=== PATIENT | female | born 1990 | race Two or more races ===

== ENCOUNTER 2017-09-24 09:40 | Emergency (ER) | payer MEDICAID ==
[~2017-09-24] VITALS: Ht 157.5 cm; Wt 63.5 kg
[2017-09-24 09:54] VITALS: BP 152/99
[2017-09-24] MEDS ORDERED: PREDNISONE20 MG ORAL (10:07)
[2017-09-24] MEDS ORDERED: CLINDAMYCIN HC300 MG ORAL (10:07)
[2017-09-24] MEDS ORDERED: DIPHENHYDRAMINE25 M1 ORAL (10:07)
[2017-09-24 10:16] VITALS: BP 152/99
--- NOTE | 2017-09-24 10:46 | Emergency Room Report ---
History of Present Illness General Chief Complaint: Skin Rash/Abscess Source: Patient Present Illness HPI 27-year-old female presents to ED for evaluation. Patient notes rash to her upper arms, chest, back x3 days. It is very itchy. Denies any pain. Denies any fevers or chills. Denies any food allergies. Notes allergies to penicillin and amoxicillin but denies taking these medications. Denies throat tighness, tongue swelling, or shortness of breath. Denies sick contacts or recent travel. No other aggravating or relieving factors. Denies any other associated symptoms Allergies: Coded Allergies: No Known Allergies (Unverified , 09/24/17) Patient History Past Medical History: DM, HTN Past Surgical History: none Pertinent Family History: none Social History: Denies: smoking, alcohol use, drug use Now: No Immunizations: UTD Reviewed Nursing Documentation: PMH: Agreed, PSxH: Agreed Nursing Documentation-PMH Past Medical History: No History, Except For Hx Hypertension: Yes Hx Diabetes: Yes Review of Systems All Other Systems: negative except mentioned in HPI Physical Exam Vital Signs Date Time Temp Pulse Resp B/P (MAP) Pulse Ox O2 Delivery O2 Flow Rate FiO2 09/24/17 09:49 98.2 86 18 152/99 98 Room Air 98.2 Sp02 EP Interpretation: reviewed, normal General Appearance: no apparent distress, alert, GCS 15, non-toxic Head: normocephalic Eyes: bilateral eye normal inspection, bilateral eye PERRL ENT: hearing grossly normal, normal pharynx, no angioedema, normal voice Neck: full range of motion, supple/symm/no masses Respiratory: chest non-tender, lungs clear, normal breath sounds, speaking full sentences Cardiovascular #1: normal inspection Gastrointestinal: normal inspection Rectal: deferred Genitourinary: no CVA tenderness Musculoskeletal: normal inspection Neurologic: alert, oriented x3, responsive, motor strength/tone normal, sensory intact, speech normal Psychiatric: judgement/insight normal Skin: rash - white papular diffuse rash noted to chest, arms, face. nonerythematous base Lymphatic: normal inspection Medical Decision Making Diagnostic Impression: Primary Impression: Rash and other nonspecific skin eruption ER Course Hospital Course 27-year-old female presents to ED with rash to arms, chest and back Differential diagnoses include: Cellulitis, dermatitis, insect bite, abscess Clinical course Patient placed on stretcher. After initial history, physical exam reveals a young female in no acute distress. On exam there is a diffuse white papular rash noted to the arms, chest, face, back. Nonerythematous base Patient states that she recently switched reviewed detergent. Also states that she started a new job with a new uniform which he did not wash prior to her first use Recommended that she switch back to original detergent. Recommend washing the chart prior to next use. We will prescribe antibiotics, steroids, Benadryl. If symptoms do not improve recommend followup with dermatology as outpatient Diagnosis - rash stable and discharged to home with prescription for prednisnoe, benedryl, clindamycin. Instructed to followup with PMD. Instructed return to ED if symptoms recur or worsen Last Vital Signs Date Time Temp Pulse Resp B/P (MAP) Pulse Ox O2 Delivery O2 Flow Rate FiO2 09/24/17 10:16 98.2 18 152/99 98 Room Air 98.2 09/24/17 09:49 86 Status: improved Disposition: HOME, SELF-CARE Condition: Stable Scripts Prednisone* (PREDNISONE*) 20 Mg Tablet 40 MG ORAL DAILY, #10 TAB Prov: NEFTALY GUARDADO M.D. 09/24/17 Diphenhydramine Hcl* (DIPHENHYDRAMINE HCL*) 25 Mg Capsule 25 MG ORAL Q6H Y for Itching, #30 CAP 0 Refills Prov: NEFTALY GUARDADO M.D. 09/24/17 Clindamycin Hcl (CLINDAMYCIN HCL) 300 Mg Capsule 300 MG ORAL THREE TIMES A DAY, #21 CAP Prov: NEFTALY GUARDADO M.D. 09/24/17 Referrals: NON PHYSICIAN (PCP) Patient Instructions: NEFTALY Cagle M.D. Sep 24, 2017 10:46
== END 2017-09-24 10:18 | disposition home or self-care (01) ==
LOC: EMR 10:06
DX: R21 Rash and other nonspecific skin eruption (principal); I10 Essential (primary) hypertension; E11.9 Type 2 diabetes mellitus without complications
CPT/HCPCS: 99284

== ENCOUNTER 2018-01-05 23:18 | Emergency (ER) | payer MEDICAID ==
[~2018-01-05] VITALS: Ht 165.1 cm; Wt 87.1 kg
[~2018-01-05 23:18] MED LIST: CLINDAMYCIN HC300 MG ORAL; DIPHENHYDRAMINE25 M1 ORAL; PREDNISONE20 MG ORAL
[2018-01-05] MEDS ORDERED: LORATADINE10 M2 PO (23:32)
[2018-01-05] MEDS ORDERED: LISINOPRIL10 MG ORAL (23:32)
[2018-01-05] MEDS ORDERED: GLIPIZIDE10 MG PO (23:32)
[2018-01-05] MEDS ORDERED: METFORMIN HCL1000 M1 ORAL (23:32)
[2018-01-05 23:40] VITALS: BP 120/75
[2018-01-05] MEDS ORDERED: Morphine Sulfate 4mg/ml Inj IVP ONE (23:45)
[2018-01-05] MEDS ORDERED: Ketorolac 30mg Inj IV ONE (23:45)
--- NOTE | 2018-01-05 23:47 | Emergency Room Report ---
History of Present Illness General Chief Complaint: Abdominal Pain Source: Patient Present Illness HPI Is a 27-year-old female with history of diabetes. She presents with abdominal pain localized the right upper quadrant. Onset around 4 PM. Worse with eating. Pain radiating to the right inferior scapular area. Started vomiting here. No diarrhea. Pain is 10 out of 10. Similar symptom in the past but not as severe. Mom has history of gallbladder disease and require cholecystectomy. Allergies: Coded Allergies: AMOXICILLIN (Verified Allergy, Unknown, 01/05/18) PENICILLINS (Verified Allergy, Unknown, 01/05/18) Patient History Past Medical History: see triage record, old chart reviewed, DM Past Surgical History: appy Pertinent Family History: none Social History: Denies: smoking Last Menstrual Period: December Immunizations: other Reviewed Nursing Documentation: PMH: Agreed; PSxH: Agreed Nursing Documentation-PMH Hx Hypertension: Yes Hx Diabetes: Yes Review of Systems Eye: Denies: eye pain, blurred vision ENT: Denies: ear pain, nose congestion, throat swelling Respiratory: Denies: cough, shortness of breath Cardiovascular: Denies: chest pain, palpitations Gastrointestinal: Reports: abdominal pain, nausea, vomiting; Denies: diarrhea Musculoskeletal: Denies: back pain, joint pain Skin: Denies: rash Neurological: Denies: headache, numbness Endocrine: Denies: increased thirst, increased urine Hematologic/Lymphatic: Denies: easy bruising All Other Systems: negative except mentioned in HPI Physical Exam Vital Signs Date Time Temp Pulse Resp B/P (MAP) Pulse Ox O2 Delivery O2 Flow Rate FiO2 01/05/18 23:24 97.8 105 16 131/87 97 Room Air 97.9 vitals normal Sp02 EP Interpretation: reviewed, normal General Appearance: well appearing, no apparent distress, alert Head: normocephalic, atraumatic Eyes: bilateral eye PERRL, bilateral eye EOMI ENT: hearing grossly normal, normal pharynx Neck: full range of motion, supple, no meningismus Respiratory: chest non-tender, lungs clear, normal breath sounds Cardiovascular #1: regular rate, rhythm, no murmur Gastrointestinal: normal bowel sounds, no mass, no organomegaly, no bruit, non- distended, tenderness - Right upper quadrant Musculoskeletal: back normal, gait/station normal, normal range of motion Psychiatric: mood/affect normal Skin: warm/dry Medical Decision Making Diagnostic Impression: Primary Impression: Cholelithiasis Qualified Codes: K80.20 - Calculus of gallbladder without cholecystitis without obstruction Additional Impressions: Biliary colic Hyperglycemia due to type 2 diabetes mellitus Qualified Codes: E11.65 - Type 2 diabetes mellitus with hyperglycemia ER Course Patient presents with abdominal pain of right upper quadrant. Symptoms suggested of cholelithiasis and biliary colic. No evidence of pancreatitis. My bedside ultrasound showed multiple gallstones and sludge. Negative Garcia sign. Common bowel duct unremarkable. Lab Results Impression labs with elevated glucose Last Vital Signs Date Time Temp Pulse Resp B/P (MAP) Pulse Ox O2 Delivery O2 Flow Rate FiO2 01/05/18 23:24 97.8 105 16 131/87 97 Room Air 97.9 Status: improved Disposition: HOME, SELF-CARE Condition: Stable Scripts Hydrocodone/Acetaminophen 5-325* (HYDROCODONE/ACETAMINOPHEN 5-325*) 1 Each Tablet 1 TAB ORAL Q6H PRN for For Pain, #20 TAB 0 Refills Prov: JUANITO LIMON M.D. 01/06/18 Additional Instructions: Follow-up with your DrGilles in 2 to 3 days. You may benefit from referral to see a surgeon. Return if symptom worsen. JUANITO LIMON M.D. January 05, 2018 23:47
[2018-01-05 23:59] LABS: BASOPHILS % (AUTO) 0.8 % (0.0-2.0); EOSINOPHILS % (AUTO) 1.9 % (0.0-3.0); HEMATOCRIT 43.6 % (37.0-47.0); HEMOGLOBIN 15.6 G/DL (12.0-16.0); LYMPHOCYTES % (AUTO) 41.6 % (20.0-45.0); MEAN CORPUSCULAR VOLUME 82 FL (80-99); MONOCYTES % (AUTO) 5.1 % (1.0-10.0); NEUTROPHILS % (AUTO) 50.7 % (45.0-75.0); PLATELET COUNT 300 K/UL (150-450); RED BLOOD COUNT 5.33 M/UL (4.20-5.40); RED CELL DISTRIBUTION WIDTH 11.3 % (11.6-14.8); WHITE BLOOD COUNT 9.2 K/UL (4.8-10.8)
[2018-01-06 00:09] LABS: APPEARANCE,URINE CLEAR; BILIRUBIN, URINE NEGATIVE (NEGATIVE); COLOR,URINE PALE YELLOW; GLUCOSE, URINE (UA) 3+ (NEGATIVE); KETONES,URINE NEGATIVE (NEGATIVE); LEUKOCYTE ESTERASE ,URINE NEGATIVE (NEGATIVE); NITRITE,URINE NEGATIVE (NEGATIVE); PH,URINE 5 (4.5-8.0); PROTEIN,URINE NEGATIVE (NEGATIVE); UROBILINOGEN,URINE NORMAL MG/DL (0.0-1.0)
[2018-01-06 00:17] LABS: ANION GAP 11 mmol/L (5-15); BLOOD UREA NITROGEN 12 mg/dL (7-18); CALCIUM 9.2 MG/DL (8.5-10.1); CARBON DIOXIDE 26 MMOL/L (21-32); CHLORIDE 99 MMOL/L (98-107); CREATININE 0.7 MG/DL (0.55-1.30); POTASSIUM 3.6 MMOL/L (3.5-5.1); SODIUM 136 MMOL/L (136-145)
[2018-01-06 00:20] LABS: ALANINE AMINOTRANSFERASE 50 U/L (12-78); ALBUMIN 3.4 G/DL (3.4-5.0); ALBUMIN/GLOBULIN RATIO 0.8 (1.0-2.7); ALKALINE PHOSPHATASE 106 U/L (46-116); ASPARTATE AMINO TRANSFERASE 25 U/L (15-37); BILIRUBIN,TOTAL 0.5 MG/DL (0.2-1.0)
[2018-01-06] MEDS ORDERED: Morphine Sulfate 4mg/ml Inj IVP ONE (01:15)
[2018-01-06] MEDS ORDERED: HYDROCODON-ACE1 EA15 ORAL (01:16)
[2018-01-06 01:25] VITALS: BP 122/74
[2018-01-06 01:30] VITALS: BP 122/74
== END 2018-01-06 01:30 | disposition home or self-care (01) ==
LOC: EMR 23:35
DX: K80.20 Calculus of gallbladder without cholecystitis without obstruction (principal); E11.65 Type 2 diabetes mellitus with hyperglycemia; I10 Essential (primary) hypertension; Z88.0 Allergy status to penicillin
CPT/HCPCS: 36415; 80053; 81003; 81025; 83690; 85025; 96361; 96374; 96375; 96376; 99284; J1885; J2270; J2405; 96360

== ENCOUNTER 2018-03-16 16:16 | Emergency (ER) | payer MEDICAID ==
[~2018-03-16] VITALS: Ht 165.1 cm; Wt 86.2 kg
[~2018-03-16 16:16] MED LIST changes: +GLIPIZIDE10 MG PO; +HYDROCODON-ACE1 EA15 ORAL; +LISINOPRIL10 MG ORAL; +LORATADINE10 M2 PO; +METFORMIN HCL1000 M1 ORAL
[2018-03-16] MEDS ORDERED: CHLORTHALIDONE25 MG ORAL (16:23)
[2018-03-16 16:42] VITALS: BP 130/87
[2018-03-16] MEDS ORDERED: Ketorolac 30mg Inj IV ONE (16:45)
[2018-03-16 17:25] LABS: EOSINOPHILS % (AUTO) 1.8 % (0.0-3.0); HEMATOCRIT 45.4 % (37.0-47.0); HEMOGLOBIN 15.7 G/DL (12.0-16.0); LYMPHOCYTES % (AUTO) 35.9 % (20.0-45.0); MEAN CORPUSCULAR VOLUME 84 FL (80-99); MONOCYTES % (AUTO) 4.3 % (1.0-10.0); PLATELET COUNT 341 K/UL (150-450); RED BLOOD COUNT 5.43 M/UL (4.20-5.40); RED CELL DISTRIBUTION WIDTH 11.1 % (11.6-14.8); WHITE BLOOD COUNT 9.2 K/UL (4.8-10.8)
[2018-03-16 17:31] LABS: ANION GAP 7 mmol/L (5-15); BLOOD UREA NITROGEN 9 mg/dL (7-18); CALCIUM 9.7 MG/DL (8.5-10.1); CARBON DIOXIDE 28 MMOL/L (21-32); CHLORIDE 97 MMOL/L (98-107); CREATININE 0.8 MG/DL (0.55-1.30); POTASSIUM 3.4 MMOL/L (3.5-5.1); SODIUM 132 MMOL/L (136-145)
[2018-03-16 17:36] LABS: ALANINE AMINOTRANSFERASE 73 U/L (12-78); ALBUMIN/GLOBULIN RATIO 0.9 (1.0-2.7); ALKALINE PHOSPHATASE 105 U/L (46-116); ASPARTATE AMINO TRANSFERASE 50 U/L (15-37); BILIRUBIN,TOTAL 0.5 MG/DL (0.2-1.0)
--- NOTE | 2018-03-16 18:04 | Emergency Room Report ---
History of Present Illness General Chief Complaint: Chest Pain Source: Patient, Medical Record Present Illness HPI 28-year-old female patient presents ER complaining of intermittent chest pain for the past week. Reports pain comes and goes.. Denies radiation of pain down the arms. Denies fever, shortness of breath, cough, abdominal pain. Denies dysuria, hematuria. Denies vomiting. Denies other acute symptoms.reports stressors at home. Reports history of hypertension and diabetes. Reports taking medications. Reports was seen by primary care provider a week ago, had abnormal EKG and was referred to cardiology. States awaiting referral to cardiology. Denies hx of OR or stroke. Allergies: Coded Allergies: AMOXICILLIN (Verified Allergy, Unknown, 01/05/18) PENICILLINS (Verified Allergy, Unknown, 01/05/18) Patient History Past Medical History: see triage record Last Menstrual Period: 02/20/18 Reviewed Nursing Documentation: PMH: Agreed; PSxH: Agreed Nursing Documentation-PMH Past Medical History: No History, Except For Hx Hypertension: Yes Hx Diabetes: Yes Review of Systems All Other Systems: negative except mentioned in HPI Physical Exam Vital Signs Date Time Temp Pulse Resp B/P (MAP) Pulse Ox O2 Delivery O2 Flow Rate FiO2 03/16/18 16:18 98.3 99 18 130/87 96 Room Air 98.2 Sp02 EP Interpretation: reviewed, normal General Appearance: well appearing, no apparent distress, alert, GCS 15, non- toxic Head: normocephalic, atraumatic Eyes: bilateral eye normal inspection, bilateral eye PERRL ENT: hearing grossly normal, normal pharynx, no angioedema, normal voice, TMs + canals normal, uvula midline, moist mucus membranes Neck: full range of motion Respiratory: lungs clear, normal breath sounds, no rhonchi, no respiratory distress, no accessory muscle use, no wheezing, speaking full sentences Cardiovascular #1: regular rate, rhythm, no edema Gastrointestinal: non tender, soft, no mass, non-distended, no guarding, no rebound Genitourinary: no CVA tenderness Musculoskeletal: back normal, digits/nails normal, gait/station normal, normal range of motion, non-tender Neurologic: alert, oriented x3, responsive, motor strength/tone normal, sensory intact Psychiatric: mood/affect normal Skin: no rash Lymphatic: no adenopathy Medical Decision Making PA Attestation Dr. Snyder is my supervising Physician whom patient management has been discussed with. Diagnostic Impression: Primary Impression: Atypical chest pain Additional Impression: Diabetes mellitus ER Course Pt. presents to the ED c/o chest pain. Ddx considered but are not limited to GERD, acid reflux, OR, arrhythmia, DVT, pneumothorax, anxiety. No calf swelling, negative Tab's sign, low suspicion for DVT per Well's criteria. Low suspicion for cardiac cause of pain. Will order labs to rule out. Vital signs: are WNL, pt. is afebrile Blood pressure mildly elevated at this time, will continue to monitor. Does not require acute intervention at ER at this time. Follow with primary care provider discuss further treatment and referral. Advised on low-sodium diet, advised on diet and exercise. Ordered X-ray, labs, troponin, EKG and pain medication. ER COURSE Labs shows no elevation in WBC or LFTs, elevated blood glucose, states she took her medication, will provide fluids to patient. advised patient to discuss diabetes medications with primary care provider. Troponin negative CXR Negative for acute disease EKG unremarkable, no ST elevation or arrhythmias noted negative chest x-ray, no ST elevations an EKG, troponin negative, cardiac pathology unlikely at this time, however needs follow-up outpatient for further testing as needed with assembly detailer. discussed with the patient. Patient resting comfortably in bed, nontoxic appearing, texting on her phone, laughing and smiling. Patient OK for outpatient followup and treatment. Followup with primary care provider, discuss referral to cardiology. Advised on diabetes medication and diet. DISCHARGE: -Rx provided for Tylenol for pain symptoms. At this time pt. is stable for d/c to home. Patient is resting comfortably, in no acute distress, nontoxic appearing, talking without difficulty. Will provide printed patient care instructions, and any necessary prescriptions. Patient instructed to follow with primary care provider in 1-3 days. Followup with primary care provider for further pain medication rx. Care plan and follow up instructions have been discussed with the patient prior to discharge. Take medications as directed. Patient questions asked and answered. Patient reports understanding and agreement to treatment plan. ER precautions given, patient instructed to return to ER immediately for any new or worsening of symptoms. - Please note that this Emergency Department Report was dictated using [employer] lid[employer] technology software, occasionally this can lead to erroneous entry secondary to interpretation by the dictation equipment. Labs Test 8/9/18 17:01 White Blood Count 9.2 K/UL (4.8-10.8) Red Blood Count 5.43 M/UL (4.20-5.40) Hemoglobin 15.7 G/DL (12.0-16.0) Hematocrit 45.4 % (37.0-47.0) Mean Corpuscular Volume 84 FL (80-99) Mean Corpuscular Hemoglobin 28.9 PG (27.0-31.0) Mean Corpuscular Hemoglobin Concent 34.5 G/DL (32.0-36.0) Red Cell Distribution Width 11.1 % (11.6-14.8) Platelet Count 341 K/UL (150-450) Mean Platelet Volume 6.3 FL (6.5-10.1) Neutrophils (%) (Auto) 57.0 % (45.0-75.0) Lymphocytes (%) (Auto) 35.9 % (20.0-45.0) Monocytes (%) (Auto) 4.3 % (1.0-10.0) Eosinophils (%) (Auto) 1.8 % (0.0-3.0) Basophils (%) (Auto) 1.0 % (0.0-2.0) Sodium Level 132 MMOL/L (136-145) Potassium Level 3.4 MMOL/L (3.5-5.1) Chloride Level 97 MMOL/L (98-107) Carbon Dioxide Level 28 MMOL/L (21-32) Anion Gap 7 mmol/L (5-15) Blood Urea Nitrogen 9 mg/dL (7-18) Creatinine 0.8 MG/DL (0.55-1.30) Estimat Glomerular Filtration Rate > 60 mL/min (>60) Glucose Level 311 MG/DL (74-106) Calcium Level 9.7 MG/DL (8.5-10.1) Total Bilirubin 0.5 MG/DL (0.2-1.0) Aspartate Amino Transf (AST/SGOT) 50 U/L (15-37) Alanine Aminotransferase (ALT/SGPT) 73 U/L (12-78) Alkaline Phosphatase 105 U/L (46-116) Troponin I 0.000 ng/mL (0.000-0.056) Total Protein 8.5 G/DL (6.4-8.2) Albumin 4.0 G/DL (3.4-5.0) Globulin 4.5 g/dL Albumin/Globulin Ratio 0.9 (1.0-2.7) EKG Diagnostic Results Rate: normal Rhythm: NSR ST Segments: no acute changes ASA given to the pt in ED: No PA Scribe Text Naren Grimaldo PA-C Rhythm Strip Diag. Results EP Interpretation: yes Rate: 98 Rhythm: NSR, no PVC's, no ectopy PA Scribe Text Naren Grimaldo PA-C Chest X-Ray Diagnostic Results Chest X-Ray Diagnostic Results : Chest X-Ray Ordered: Yes # of Views/Limited/Complete: 1 View Indication: Chest Pain EP Interpretation: Yes PA Xray: Interpretation reviewed, by supervising MD, and agrees with findings. Interpretation: no consolidation, no effusion, no pneumothorax, no acute cardiopulmonary disease Impression: No acute disease TATIANA Scribe Viki Grimaldo PA-C Last Vital Signs Date Time Temp Pulse Resp B/P (MAP) Pulse Ox O2 Delivery O2 Flow Rate FiO2 03/16/18 17:03 98.2 03/16/18 16:42 89 18 130/87 96 Room Air Disposition: HOME, SELF-CARE Condition: Stable Scripts Acetaminophen* (TYLENOL EXTRA STRENGTH*) 500 Mg Tablet 500 MG ORAL Q8H PRN for Prn Headache/Temp > 101, #30 TAB 0 Refills Prov: Don Grimaldo 03/16/18 Referrals: NON PHYSICIAN (PCP) Patient Instructions: Diabetes Mellitus and Food, Nonspecific Chest Pain, Easy- to-Read Additional Instructions: Followup with primary care provider in 3 -5 days. Discuss diabetes medications. Follow-up with cardiology. Advised on diet, exercise and weight loss. Take medications as directed. Patient questions asked and answered. ER precautions given, patient instructed to return to ER immediately for any new or worsening of symptoms. Don Grimaldo Mar 16, 2018 18:04
[2018-03-16] MEDS ORDERED: TYLENOL EXTRA500 MG ORAL (18:35)
[2018-03-16 19:03] VITALS: BP 129/67
[2018-03-16 19:38] VITALS: BP 129/67
--- NOTE | 2018-03-17 09:43 | Diagnostic Imaging Report ---
Indication: Chest pain Technique: One view of the chest Comparison: none Findings: Lungs and pleural spaces are clear. Heart size is normal Impression: No acute process
--- NOTE | 2018-03-17 13:36 | Cardiology Report ---
APPROVED REPORT EKG Measurement Heart [id number] Normal sinus rhythm Normal ECG
== END 2018-03-16 19:38 | disposition home or self-care (01) ==
LOC: EMR 17:39
DX: R07.89 Other chest pain (principal); E11.9 Type 2 diabetes mellitus without complications; I10 Essential (primary) hypertension; Z88.0 Allergy status to penicillin; Z88.1 Allergy status to other antibiotic agents
CPT/HCPCS: 36415; 71045; 80053; 84484; 85025; 93005; 96361; 96374; 99284; J1885

== ENCOUNTER 2018-03-23 20:14 | Emergency (ER) | payer MEDICAID ==
[~2018-03-23] VITALS: Ht 165.1 cm; Wt 81.6 kg
[~2018-03-23 20:14] MED LIST changes: +CHLORTHALIDONE25 MG ORAL; +TYLENOL EXTRA500 MG ORAL
--- NOTE | 2018-03-23 20:58 | Emergency Room Report ---
History of Present Illness General Chief Complaint: Pain Source: Patient Present Illness HPI Patient is a 28-year-old female who presented after increased sore throat and a left-sided earache. The patient reported having onset of symptoms approximately 3 days prior to arrival. She reports having increased difficulty swallowing. She reports having generalized body aches as well as some painful swallowing. She denies any change in her voice. She denies any difficulty with eating. The patient prior history of hypertension and type 2 diabetes. Allergies: Coded Allergies: AMOXICILLIN (Verified Allergy, Unknown, 01/05/18) PENICILLINS (Verified Allergy, Unknown, 01/05/18) Patient History Past Medical History: see triage record Last Menstrual Period: 03/22/18 Now: No Reviewed Nursing Documentation: PMH: Agreed; PSxH: Agreed Nursing Documentation-PMH Hx Hypertension: Yes Hx Diabetes: Yes Review of Systems All Other Systems: negative except mentioned in HPI Physical Exam Vital Signs Date Time Temp Pulse Resp B/P (MAP) Pulse Ox O2 Delivery O2 Flow Rate FiO2 03/23/18 20:28 99.9 124 24 142/93 93 Room Air 99.9 General Appearance: well appearing, no apparent distress, alert, GCS 15 Head: normocephalic, atraumatic ENT: hearing grossly normal, normal voice, tonsillar swelling - no uvular deviation, pharyngeal erythema Neck: full range of motion, supple Respiratory: lungs clear, normal breath sounds, no respiratory distress, speaking full sentences Cardiovascular #1: normal inspection, normal peripheral pulses, regular rate, rhythm, no edema Gastrointestinal: normal inspection, non tender, soft Musculoskeletal: no calf tenderness Neurologic: normal inspection, alert, oriented x3, responsive, service desk lead III-XII nml as tested, normal gait Psychiatric: mood/affect normal Skin: no rash Medical Decision Making Diagnostic Impression: Primary Impression: Pharyngitis ER Course Presented for sore throat. Differential diagnosis included but was not limited to meningitis, exudative tonsillitis, retropharyngeal abscess, epiglottitis, strep pharyngitis. Because of complexity of patient's case laboratory testing and imaging studies were ordered. the patient was noted to have a mildly elevated WBC. Patient appears have evidence of exudative tonsillitis. There does not appear to be any abscess this time. The patient given ibuprofen for pain as well as viscous lidocaine. The test was ordered. The patient will be given antibiotics for presumed bacterial pharyngitis.The patient is advised to follow up with primary care doctor in 1-2 days. Patient is advised to return if any worsening condition or if any changes in status that are concerning. This report is dictated with [employer] vacation planner software which may occasionally lead to discrepancies related to use of this software. Labs Test 03/23/18 21:20 03/23/18 21:25 Urine Color Pale yellow Urine Appearance Clear Urine pH 7 (4.5-8.0) Urine Specific [place] 1.010 (1.005-1.035) Urine Protein 1+ (NEGATIVE) Urine Glucose (UA) 4+ (NEGATIVE) Urine Ketones Negative (NEGATIVE) Urine Occult Blood 5+ (NEGATIVE) Urine Nitrite Negative (NEGATIVE) Urine Bilirubin Negative (NEGATIVE) Urine Urobilinogen Normal MG/DL (0.0-1.0) Urine Leukocyte Esterase Negative (NEGATIVE) Urine RBC 40-60 /HPF (0 - 2) Urine WBC 0 /HPF (0 - 2) Urine Squamous Epithelial Cells Occasional /LPF Urine Bacteria Occasional /HPF (NONE) Urine HCG, Qualitative Negative (NEGATIVE) White Blood Count 13.0 K/UL (4.8-10.8) Red Blood Count 4.99 M/UL (4.20-5.40) Hemoglobin 14.8 G/DL (12.0-16.0) Hematocrit 42.2 % (37.0-47.0) Mean Corpuscular Volume 85 FL (80-99) Mean Corpuscular Hemoglobin 29.7 PG (27.0-31.0) Mean Corpuscular Hemoglobin Concent 35.1 G/DL (32.0-36.0) Red Cell Distribution Width 11.1 % (11.6-14.8) Platelet Count 319 K/UL (150-450) Mean Platelet Volume 6.3 FL (6.5-10.1) Neutrophils (%) (Auto) 72.4 % (45.0-75.0) Lymphocytes (%) (Auto) 21.1 % (20.0-45.0) Monocytes (%) (Auto) 4.7 % (1.0-10.0) Eosinophils (%) (Auto) 1.0 % (0.0-3.0) Basophils (%) (Auto) 0.8 % (0.0-2.0) Sodium Level 135 MMOL/L (136-145) Potassium Level 3.6 MMOL/L (3.5-5.1) Chloride Level 100 MMOL/L (98-107) Carbon Dioxide Level 29 MMOL/L (21-32) Anion Gap 7 mmol/L (5-15) Blood Urea Nitrogen 6 mg/dL (7-18) Creatinine 0.7 MG/DL (0.55-1.30) Estimat Glomerular Filtration Rate > 60 mL/min (>60) Glucose Level 269 MG/DL (74-106) Calcium Level 9.2 MG/DL (8.5-10.1) Total Bilirubin 0.5 MG/DL (0.2-1.0) Aspartate Amino Transf (AST/SGOT) 31 U/L (15-37) Alanine Aminotransferase (ALT/SGPT) 77 U/L (12-78) Alkaline Phosphatase 115 U/L (46-116) Total Protein 8.3 G/DL (6.4-8.2) Albumin 3.9 G/DL (3.4-5.0) Globulin 4.4 g/dL Albumin/Globulin Ratio 0.9 (1.0-2.7) Human Chorionic Gonadotropin, Qual Negative (NEGATIVE) Last Vital Signs Date Time Temp Pulse Resp B/P (MAP) Pulse Ox O2 Delivery O2 Flow Rate FiO2 03/23/18 20:28 99.9 124 24 142/93 93 Room Air 99.9 Status: improved Disposition: HOME, SELF-CARE Condition: Stable Scripts Ibuprofen* (MOTRIN*) 600 Mg Tablet 600 MG ORAL Q8H PRN for For Pain, #30 TAB 0 Refills Prov: Xiang Hussein MD 03/23/18 Azithromycin* (ZITHROMAX*) 250 Mg Tablet 250 MG ORAL DAILY, #4 TAB Prov: Xiang Hussein MD 03/23/18 Xiang Hussein MD Mar 23, 2018 20:58
[2018-03-23] MEDS ORDERED: IBUPROFEN600 MG ORAL (20:59)
[2018-03-23] MEDS ORDERED: ZITHROMAX250 MG ORAL (20:59)
[2018-03-23] MEDS ORDERED: Azithromycin 250mg tab ORAL ONE (21:00)
[2018-03-23] MEDS ORDERED: Lidocaine 2% Visc 15ml soln ORAL ONE (21:00)
[2018-03-23 21:25] VITALS: BP 137/78
[2018-03-23] MEDS ORDERED: Acetaminophen 500mg (ES) tab ORAL ONE (21:30)
[2018-03-23 21:50] LABS: BASOPHILS % (AUTO) 0.8 % (0.0-2.0); HEMATOCRIT 42.2 % (37.0-47.0); HEMOGLOBIN 14.8 G/DL (12.0-16.0); LYMPHOCYTES % (AUTO) 21.1 % (20.0-45.0); MEAN CORPUSCULAR VOLUME 85 FL (80-99); MONOCYTES % (AUTO) 4.7 % (1.0-10.0); NEUTROPHILS % (AUTO) 72.4 % (45.0-75.0); PLATELET COUNT 319 K/UL (150-450); RED BLOOD COUNT 4.99 M/UL (4.20-5.40); RED CELL DISTRIBUTION WIDTH 11.1 % (11.6-14.8)
[2018-03-23 21:52] LABS: ANION GAP 7 mmol/L (5-15); BLOOD UREA NITROGEN 6 mg/dL (7-18); CALCIUM 9.2 MG/DL (8.5-10.1); CARBON DIOXIDE 29 MMOL/L (21-32); CHLORIDE 100 MMOL/L (98-107); CREATININE 0.7 MG/DL (0.55-1.30); POTASSIUM 3.6 MMOL/L (3.5-5.1); SODIUM 135 MMOL/L (136-145)
[2018-03-23 21:55] LABS: APPEARANCE,URINE CLEAR; BILIRUBIN, URINE NEGATIVE (NEGATIVE); COLOR,URINE PALE YELLOW; GLUCOSE, URINE (UA) 4+ (NEGATIVE); KETONES,URINE NEGATIVE (NEGATIVE); LEUKOCYTE ESTERASE ,URINE NEGATIVE (NEGATIVE); NITRITE,URINE NEGATIVE (NEGATIVE); PH,URINE 7 (4.5-8.0); PROTEIN,URINE 1+ (NEGATIVE); UROBILINOGEN,URINE NORMAL MG/DL (0.0-1.0)
[2018-03-23 21:57] LABS: ALANINE AMINOTRANSFERASE 77 U/L (12-78); ALBUMIN 3.9 G/DL (3.4-5.0); ALBUMIN/GLOBULIN RATIO 0.9 (1.0-2.7); ALKALINE PHOSPHATASE 115 U/L (46-116); ASPARTATE AMINO TRANSFERASE 31 U/L (15-37); BILIRUBIN,TOTAL 0.5 MG/DL (0.2-1.0)
[2018-03-23] MEDS ORDERED: Azithromycin 500 MG in D5W 275 ML IVPB ONE (22:15)
[2018-03-23 23:36] VITALS: BP 150/87
[2018-03-24 00:25] VITALS: BP 139/84
== END 2018-03-24 00:25 | disposition home or self-care (01) ==
LOC: EMR 20:55
DX: J02.9 Acute pharyngitis, unspecified (principal); E11.9 Type 2 diabetes mellitus without complications; I10 Essential (primary) hypertension; Z88.0 Allergy status to penicillin; Z88.1 Allergy status to other antibiotic agents
CPT/HCPCS: 36415; 80053; 81003; 81025; 84703; 85025; 96361; 96365; 99284; J0456; Q0144

== ENCOUNTER 2018-07-16 11:05 | Emergency (ER) | payer MEDICAID ==
[~2018-07-16] VITALS: Ht 165.1 cm; Wt 83.0 kg
[~2018-07-16 11:05] MED LIST changes: +IBUPROFEN600 MG ORAL; +ZITHROMAX250 MG ORAL
[2018-07-16 11:13] VITALS: BP 123/73
--- NOTE | 2018-07-16 11:49 | Emergency Room Report ---
History of Present Illness General Chief Complaint: Female Urogenital Problems Source: Patient Present Illness HPI Patient presents with complaints of vaginal discharge Reports that she had some yellowish discharge Also foul-smelling and itching Patient reports the last time she had this she was also having some mild cramping in the suprapubic area Denies any fevers or chills denies any vomiting she had one episode of diarrhea today Denies any rash denies any recent antibiotic intake denies any recent sexual activity Allergies: Coded Allergies: AMOXICILLIN (Verified Allergy, Unknown, 01/05/18) PENICILLINS (Verified Allergy, Unknown, 01/05/18) Patient History Past Medical History: see triage record Pertinent Family History: none Last Menstrual Period: 06/22/18 Reviewed Nursing Documentation: PMH: Agreed; PSxH: Agreed Nursing Documentation-PMH Hx Hypertension: Yes Hx Diabetes: Yes Review of Systems All Other Systems: negative except mentioned in HPI Physical Exam Vital Signs Date Time Temp Pulse Resp B/P (MAP) Pulse Ox O2 Delivery O2 Flow Rate FiO2 07/16/18 11:08 98.1 85 18 121/79 98 Room Air Sp02 EP Interpretation: reviewed, normal General Appearance: well appearing, no apparent distress Head: normocephalic, atraumatic Eyes: bilateral eye PERRL, bilateral eye EOMI ENT: hearing grossly normal, normal pharynx, TMs + canals normal, uvula midline Neck: full range of motion, supple, no meningismus, no bony tend Respiratory: lungs clear, normal breath sounds, no rhonchi, no respiratory distress, no retraction, no accessory muscle use Cardiovascular #1: normal peripheral pulses, regular rate, rhythm, no edema, no gallop, no JVD, no murmur Gastrointestinal: normal bowel sounds, non tender, soft, no mass, no organomegaly, non-distended, no guarding, no hernia, no pulsatile mass, no rebound Genitourinary: no CVA tenderness Musculoskeletal: normal inspection Neurologic: oriented x3, responsive, research technologist III-XII nml as tested, motor strength/ tone normal, sensory intact Psychiatric: mood/affect normal Skin: normal color, no rash, warm/dry, palpation normal Lymphatic: normal inspection, no adenopathy Medical Decision Making Diagnostic Impression: Primary Impression: Vaginosis ER Course With the patient's history and examination, multiple differentials considered, including but not limited to , ectopic , ovarian torsion, gastritis, cholecystitis, pancreatitis, appendicitis Given the patient's urine sample and history Patient has clinical findings consistent with vaginosis Pelvic exam has been deferred patient had extensive exam about 4 months ago by primary physician is stable for close outpatient follow-up Labs Test 07/16/18 11:20 Urine Color Pale yellow Urine Appearance Clear Urine pH 5 (4.5-8.0) Urine Specific [place] 1.025 (1.005-1.035) Urine Protein 1+ (NEGATIVE) Urine Glucose (UA) 4+ (NEGATIVE) Urine Ketones 1+ (NEGATIVE) Urine Blood Negative (NEGATIVE) Urine Nitrite Negative (NEGATIVE) Urine Bilirubin Negative (NEGATIVE) Urine Urobilinogen Normal MG/DL (0.0-1.0) Urine Leukocyte Esterase 2+ (NEGATIVE) Urine RBC 0-2 /HPF (0 - 2) Urine WBC 2-4 /HPF (0 - 2) Urine Squamous Epithelial Cells Few /LPF (NONE/OCC) Urine Bacteria Few /HPF (NONE) Urine Mucus Few /LPF (NONE/OCC) Urine Yeast Few /HPF (NONE) Urine HCG, Qualitative Negative (NEGATIVE) Last Vital Signs Date Time Temp Pulse Resp B/P (MAP) Pulse Ox O2 Delivery O2 Flow Rate FiO2 07/16/18 11:13 98.1 78 18 123/73 98 Room Air Status: unchanged Disposition: HOME, SELF-CARE Condition: Stable Scripts Metronidazole* (METROGEL-VAGINAL*) 70 Gm Gel.w.appl 1 APPL VAGIN BEDTIME for 7 Days, GM Prov: Caitlin Reeves DO 07/16/18 Fluconazole (FLUCONAZOLE) 100 Mg Tablet 100 MG ORAL DAILY, #3 TAB 0 Refills Prov: Caitlin Reeves DO 07/16/18 Referrals: NON PHYSICIAN (PCP) Additional Instructions: Patient is provided with the discharge instructions notified to follow up with primary doctor in the next 2-3 days otherwise return to the er with any worsening symptoms. Please note that this report is being documented using [employer] technology. This can lead to erroneous entry secondary to incorrect interpretation by the dictating instrument. Caitlin Reeves DO Jul 16, 2018 11:49
[2018-07-16 12:13] LABS: APPEARANCE,URINE CLEAR; BILIRUBIN, URINE NEGATIVE (NEGATIVE); COLOR,URINE PALE YELLOW; GLUCOSE, URINE (UA) 4+ (NEGATIVE); KETONES,URINE 1+ (NEGATIVE); LEUKOCYTE ESTERASE ,URINE 2+ (NEGATIVE); NITRITE,URINE NEGATIVE (NEGATIVE); PH,URINE 5 (4.5-8.0); PROTEIN,URINE 1+ (NEGATIVE); UROBILINOGEN,URINE NORMAL MG/DL (0.0-1.0)
[2018-07-16] MEDS ORDERED: METROGEL-VAGINA70 G1 VAGIN (12:38)
[2018-07-16] MEDS ORDERED: FLUCONAZOLE100 MG ORAL (12:38)
[2018-07-16 12:47] VITALS: BP 126/68
== END 2018-07-16 12:45 | disposition home or self-care (01) ==
LOC: EMR 11:24
DX: N76.0 Acute vaginitis (principal); Z88.1 Allergy status to other antibiotic agents; Z88.0 Allergy status to penicillin; I10 Essential (primary) hypertension; E11.9 Type 2 diabetes mellitus without complications
CPT/HCPCS: 81003; 81025; 87086; 99282

== ENCOUNTER 2018-08-23 16:09 | Emergency (ER) | payer MEDICAID ==
[~2018-08-23] VITALS: Ht 165.1 cm; Wt 81.6 kg
[~2018-08-23 16:09] MED LIST changes: +FLUCONAZOLE100 MG ORAL; +METROGEL-VAGINA70 G1 VAGIN
[2018-08-23 16:41] VITALS: BP 155/89
[2018-08-23 16:45] VITALS: BP 148/92
--- NOTE | 2018-08-23 16:45 | NUR ---
ED Nurse Note: PT WALKED IN TO ER TODAY FROM HOME. AOX4. PT C/O PAINFUL COUGH X 4 DAYS AND HAS BEEN TAKING OTC MEDS WITHOUT RELIEF. PT DENIES FEVER. LUNG SOUNDS CLEAR IN ALL LOBES. NO SIGNS OF RESPIRATORY DISTRESS OR SOB.
--- NOTE | 2018-08-23 17:07 | Emergency Room Report ---
History of Present Illness General Chief Complaint: Upper Respiratory Illness Source: Patient Present Illness HPI 28-year-old female presents to the emergency department complaining of 6 out of 10 in severity painful cough, bodyaches, fevers and nasal congestion 4 days. Patient states that she has been taking iasc-vzx-olfoswk TheraFlu and other OTC medications without any relief. Patient states that her symptoms continue to progress and she now has some sputum production .Denies sore throat, ear pain, high fevers, lethargy, neck pain/stiffness, irritability, photophobia dehydration, N/V/D. Denies Cp, Palpitations, LOC, AMS, seizures, paresthesias, or changes in Hearing or vision, no Sudden severe KENNEDY. Denies hx of smoking, asthma or COPD. Allergies: Coded Allergies: AMOXICILLIN (Verified Allergy, Unknown, 01/05/18) PENICILLINS (Verified Allergy, Unknown, 01/05/18) Patient History Past Medical History: see triage record Past Surgical History: none Pertinent Family History: none Last Menstrual Period: 08/19/18 Now: No : 2 Para: 2 Immunizations: UTD Reviewed Nursing Documentation: PMH: Agreed; PSxH: Agreed Nursing Documentation-PMH Past Medical History: No History, Except For Hx Hypertension: Yes Hx Diabetes: Yes Review of Systems All Other Systems: negative except mentioned in HPI Physical Exam Vital Signs Date Time Temp Pulse Resp B/P (MAP) Pulse Ox O2 Delivery O2 Flow Rate FiO2 08/23/18 16:41 99.1 110 20 155/89 98 Room Air Sp02 EP Interpretation: reviewed, normal General Appearance: no apparent distress, alert, GCS 15, non-toxic Head: normocephalic, atraumatic Eyes: bilateral eye normal inspection, bilateral eye PERRL ENT: hearing grossly normal, normal voice, uvula midline, moist mucus membranes , nasal congestion, pharyngeal erythema Neck: full range of motion, no meningismus, no bony tend Respiratory: chest non-tender, lungs clear, normal breath sounds, no respiratory distress, no accessory muscle use, speaking full sentences, wheezing - expiratory wheezes bilaterally Cardiovascular #1: regular rate, rhythm, normal capillary refill, tachycardia - 110 Gastrointestinal: non tender, soft Rectal: deferred Genitourinary: normal inspection Musculoskeletal: back normal, gait/station normal, normal range of motion, non- tender Neurologic: alert, oriented x3, responsive, motor strength/tone normal, sensory intact, normal gait, speech normal, grossly normal Psychiatric: judgement/insight normal Skin: normal color, no rash, warm/dry, well hydrated Lymphatic: no adenopathy Medical Decision Making PA Attestation Dr. Chang is my supervising Physician whom patient management has been discussed with. Diagnostic Impression: Primary Impression: Atypical pneumonia ER Course 28-year-old female presents to the emergency department complaining of 6 out of 10 in severity painful cough, bodyaches, fevers and nasal congestion 4 days. Patient states that she has been taking ojat-apr-htsqxgq TheraFlu and other OTC medications without any relief. Patient states that her symptoms continue to progress and she now has some sputum production .Denies sore throat, ear pain, high fevers, lethargy, neck pain/stiffness, irritability, photophobia dehydration, N/V/D. Denies Cp, Palpitations, LOC, AMS, seizures, paresthesias, or changes in Hearing or vision, no Sudden severe KENNEDY. Denies hx of smoking, asthma or COPD. Ddx considered but are not limited to URI, pneumonia, PE, strep pharyngitis, meningitis, bronchitis just to name a few. Vital signs: Pt. is afebrile, the remaining VS are WNL H&PE are most consistent with URI- no meningeal signs, oropharynx is not involved, no evidence of bacterial infection at this time. ORDERS: none required at this time, the diagnosis is clinical ED INTERVENTIONS: None required at this time. DISCHARGE: At this time pt. is stable for d/c to home. Will provide printed patient care instructions, and any necessary prescriptions. Care plan and follow up instructions have been discussed with the patient prior to discharge. Last Vital Signs Date Time Temp Pulse Resp B/P (MAP) Pulse Ox O2 Delivery O2 Flow Rate FiO2 08/23/18 16:41 99.1 110 20 155/89 98 Room Air Disposition: HOME, SELF-CARE Condition: Stable Scripts Naproxen* (NAPROXEN*) 500 Mg Tablet. 500 MG ORAL TWICE A DAY for 7 Days, #10 TAB Prov: Radha Murphy 08/23/18 Albuterol Sulfate* (ALBUTEROL SULFATE MDI*) 8.5 Gm Hfa.aer.ad 2 PUFF INH Q3H, #1 INH 0 Refills Prov: Radha Murphy 08/23/18 Codeine/Promethazine Hcl* (PROMETHAZINE-CODEINE SYRUP*) 118 Ml Syrup 5 ML ORAL Q6H PRN for For Cough, #120 ML 0 Refills Prov: Radha Murphy 08/23/18 Azithromycin* (ZITHROMAX*) 250 Mg Tablet 250 MG ORAL DAILY, #6 TAB Prov: Radha Murphy 08/23/18 Departure Forms: Return to Work Return to Work Date: Aug 28, 2018 Work Restrictions: None Other Restrictions: May return Sooner if Symptoms have resolved. Return to Full Activity: Aug 28, 2018 Patient Instructions: Acute Bronchitis, Wxxv-gn-Sqgn Additional Instructions: Take medications as directed. Follow up with a Primary Care Provider in 3-5 days, even if your symptoms have resolved. --Please review list of primary care clinics, if you do not already have a primary care provider Return sooner to ED if new symptoms occur, or current symptoms become worse. Do not drink alcohol, drive, or operate heavy machinery while taking Cough Syrup as this may cause drowsiness. - Please note that this Emergency Department Report was dictated using [email or web address] technology software, occasionally this can lead to erroneous entry secondary to interpretation by the dictation equipment. Radha Murphy Aug 23, 2018 17:07
[2018-08-23] MEDS ORDERED: PROMETHAZINE-C118 M1 ORAL (17:08)
[2018-08-23] MEDS ORDERED: ZITHROMAX250 MG ORAL (17:08)
[2018-08-23] MEDS ORDERED: ALBUTEROL SULF8.5 GM INH (17:08)
[2018-08-23] MEDS ORDERED: NAPROXEN500 M1 ORAL (17:08)
--- NOTE | 2018-08-23 17:14 | NUR ---
ED Nurse Note: PT SITTING PEACEFULLY IN CHAIR IN NAD. AOX4. PRESCRIPTIONS AND DISCHARGE PAPERWORK EXPLAINED TO PT. PT VERBALIZES UNDERSTANDING AND DENIES ANY QUESTIONS AT THIS TIME. PRESCRIPTION AND DISCHARGE PAPERWORK GIVEN TO PT AND ID WRISTBAND REMOVED. PT WALKED OUT OF ER WITH STEADY GAIT AND ALL BELONGINGS.
== END 2018-08-23 17:22 | disposition home or self-care (01) ==
LOC: EMR 17:05
DX: J18.9 Pneumonia, unspecified organism (principal); I10 Essential (primary) hypertension; E11.9 Type 2 diabetes mellitus without complications; Z88.0 Allergy status to penicillin
CPT/HCPCS: 99283

== ENCOUNTER 2018-09-19 19:32 | Emergency (ER) | payer MEDICAID ==
[~2018-09-19] VITALS: Ht 165.1 cm; Wt 81.6 kg
[~2018-09-19 19:32] MED LIST changes: +ALBUTEROL SULF8.5 GM INH; +NAPROXEN500 M1 ORAL; +PROMETHAZINE-C118 M1 ORAL
[2018-09-19] MEDS ORDERED: JANUVIA25 MG ORAL (19:45)
--- NOTE | 2018-09-19 19:47 | NUR ---
ED Nurse Note: PT CAME TO ED FROM C/O BODY ACHES, ABD PAIN 7/10, AND FLU LIKE SYMPTOMS X2 DAYS, PER PT SHE VOMITED THIS MORNING, DENIES DIARRHEA, SHE ALSO STATED HER BABY WAS SICK.
[2018-09-19 19:50] VITALS: BP 127/89
--- NOTE | 2018-09-19 19:59 | Emergency Room Report ---
History of Present Illness General Chief Complaint: Vomiting Source: Patient Present Illness HPI Patient was seen here recently and told she had bronchitis. At times and at that time she had significant cough and wheezes and epigastric pain. She presents again today with similar complaints for the last 3 days. She is vomiting mainly because she is coughing she says the epigastric pain is 2/10. She has pain also throughout her body 7/10 with aches. She also complains about a sore throat. There is no vomiting of blood or melena. She denies dysuria. She has an inhaler at home. It is not helped much with the cough. She did not receive a flu vaccination. The patient is diabetic. She's takes metformin. She also takes insulin when her blood sugars get out of control. Last menstrual period August 20. She does not believe she is . 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 Last Menstrual Period: aug Now: No - unsure : 2 Para: 2 Reviewed Nursing Documentation: PMH: Agreed; PSxH: Agreed Nursing Documentation-PMH Hx Hypertension: Yes Hx Diabetes: Yes Review of Systems All Other Systems: negative except mentioned in HPI Physical Exam Vital Signs Date Time Temp Pulse Resp B/P (MAP) Pulse Ox O2 Delivery O2 Flow Rate FiO2 09/19/18 19:40 99.1 119 18 127/89 98 Room Air Sp02 EP Interpretation: reviewed, normal General Appearance: well appearing, no apparent distress, GCS 15 Head: normocephalic Eyes: bilateral eye normal inspection, bilateral eye PERRL ENT: moist mucus membranes, pharyngeal erythema Neck: supple Respiratory: chest non-tender, wheezing, expiration Cardiovascular #1: no edema, tachycardia Cardiovascular #2: 2+ radial (R) Gastrointestinal: normal inspection, normal bowel sounds, no mass, non- distended, no guarding, no rebound, tenderness - Epigastric, overweight Genitourinary: no CVA tenderness Musculoskeletal: back normal, gait/station normal, normal range of motion, no calf tenderness Neurologic: alert, oriented x3, grossly normal Psychiatric: mood/affect normal Skin: normal inspection, warm/dry, other - Tattoos Medical Decision Making Diagnostic Impression: Primary Impression: Bronchospasm with bronchitis, acute Additional Impressions: UTI (urinary tract infection) Qualified Codes: N30.00 - Acute cystitis without hematuria Hyperglycemia ER Course Patient presents with upper respiratory symptomatology, expiratory wheezes and epigastric pain. Differential includes bronchitis, pneumonia, gastritis amongst others. Patient be evaluated with EKG, chest x-ray, labs including influenza swab. Patient retreated with IV hydration, Zofran, morphine, Pepcid. Also she will receive breathing treatments here. EKG sinus tachycardia no injury. Chest x-ray no infiltrates. Influenza swab negative. Labs significant for elevated blood sugar. Urinalysis with mild pyuria. Patient improved with treatment. Still with some tachycardia. Repeat Accu- Chek 230. Discussed findings with patient. Concern over comorbidities however she is improved and feels stable for outpatient observation and treatment. She was told to return if she is not doing well. She was advised to closely monitor her blood sugars and use insulin as needed. In addition she was advised to use her albuterol inhaler. Laboratory Tests Test 09/19/18 19:55 09/19/18 20:05 White Blood Count 9.5 K/UL (4.8-10.8) Red Blood Count 5.64 M/UL (4.20-5.40) H Hemoglobin 16.0 G/DL (12.0-16.0) Hematocrit 47.2 % (37.0-47.0) H Mean Corpuscular Volume 84 FL (80-99) Mean Corpuscular Hemoglobin 28.4 PG (27.0-31.0) Mean Corpuscular Hemoglobin Concent 33.9 G/DL (32.0-36.0) Red Cell Distribution Width 11.0 % (11.6-14.8) L Platelet Count 292 K/UL (150-450) Mean Platelet Volume 6.0 FL (6.5-10.1) L Neutrophils (%) (Auto) 67.9 % (45.0-75.0) Lymphocytes (%) (Auto) 23.5 % (20.0-45.0) Monocytes (%) (Auto) 6.5 % (1.0-10.0) Eosinophils (%) (Auto) 1.1 % (0.0-3.0) Basophils (%) (Auto) 1.1 % (0.0-2.0) Sodium Level 131 MMOL/L (136-145) L Potassium Level 3.4 MMOL/L (3.5-5.1) L Chloride Level 95 MMOL/L (98-107) L Carbon Dioxide Level 28 MMOL/L (21-32) Anion Gap 8 mmol/L (5-15) Blood Urea Nitrogen 8 mg/dL (7-18) Creatinine 0.7 MG/DL (0.55-1.30) Estimate Glomerular Filtration Rate > 60 mL/min (>60) Glucose Level 309 MG/DL (74-106) H Calcium Level 9.2 MG/DL (8.5-10.1) Magnesium Level 1.5 MG/DL (1.8-2.4) L Total Bilirubin 0.6 MG/DL (0.2-1.0) Aspartate Amino Transferase (AST) 56 U/L (15-37) H Alanine Aminotransferase (ALT) 70 U/L (12-78) Alkaline Phosphatase 120 U/L (46-116) H Total Protein 8.6 G/DL (6.4-8.2) H Albumin 3.9 G/DL (3.4-5.0) Globulin 4.7 g/dL Albumin/Globulin Ratio 0.8 (1.0-2.7) L Lipase 343 U/L (73-393) Urine Color Pale yellow Urine Appearance Clear Urine pH 6 (4.5-8.0) Urine Specific [place] 1.015 (1.005-1.035) Urine Protein Negative (NEGATIVE) Urine Glucose (UA) 4+ (NEGATIVE) H Urine Ketones Negative (NEGATIVE) Urine Blood Negative (NEGATIVE) Urine Nitrite Negative (NEGATIVE) Urine Bilirubin Negative (NEGATIVE) Urine Urobilinogen Normal MG/DL (0.0-1.0) Urine Leukocyte Esterase 2+ (NEGATIVE) H Urine RBC 0-2 /HPF (0 - 2) Urine WBC 5-10 /HPF (0 - 2) H Urine Squamous Epithelial Cells Few /LPF (NONE/OCC) Urine Bacteria Few /HPF (NONE) Urine HCG, Qualitative Negative (NEGATIVE) Microbiology Date/Time Source Procedure Growth Status 09/19/18 20:10 Nasal Nares Influenza Types A,B Antigen (ARIE) - Final Complete EKG Diagnostic Results Rate: tachycardiac Rhythm: NSR ST Segments: no acute changes Rhythm Strip Diag. Results EP Interpretation: yes Rhythm: no PVC's, no ectopy, other - Sinus tachycardia Chest X-Ray Diagnostic Results Chest X-Ray Diagnostic Results : Chest X-Ray Ordered: Yes # of Views/Limited/Complete: 1 View Indication: Other EP Interpretation: Yes Interpretation: no consolidation, no effusion, no pneumothorax Impression: Other Electronically Signed by: Electronically signed by Smooth Chang MD Last Vital Signs Date Time Temp Pulse Resp B/P (MAP) Pulse Ox O2 Delivery O2 Flow Rate FiO2 09/19/18 22:43 98.7 103 24 128/72 96 Room Air 09/19/18 20:32 21 Status: improved Disposition: HOME, SELF-CARE Condition: Improved Scripts Guaifenesin/Codeine Phos* (ROBITUSSIN AC*) 118 Ml Liquid 5 ML ORAL Q6H PRN for For Cough, #90 ML 0 Refills Prov: Smooth Chang MD 09/19/18 Levofloxacin* (LEVAQUIN*) 500 Mg Tablet 500 MG ORAL DAILY, #7 TAB Prov: Smooth Chang MD 09/19/18 Smooth Chang MD Sep 19, 2018 19:59
[2018-09-19] MEDS: Albuterol ud Inhalation HHN ONE (20:16)
[2018-09-19] MEDS: Ipratropium 0.02% Inh Soln 2.5ml UD HHN ONE (20:16)
[2018-09-19 20:20] LABS: BASOPHILS % (AUTO) 1.1 % (0.0-2.0); EOSINOPHILS % (AUTO) 1.1 % (0.0-3.0); HEMATOCRIT 47.2 % (37.0-47.0); LYMPHOCYTES % (AUTO) 23.5 % (20.0-45.0); MEAN CORPUSCULAR VOLUME 84 FL (80-99); MONOCYTES % (AUTO) 6.5 % (1.0-10.0); NEUTROPHILS % (AUTO) 67.9 % (45.0-75.0); PLATELET COUNT 292 K/UL (150-450); RED BLOOD COUNT 5.64 M/UL (4.20-5.40); WHITE BLOOD COUNT 9.5 K/UL (4.8-10.8)
[2018-09-19 20:22] LABS: APPEARANCE,URINE CLEAR; BILIRUBIN, URINE NEGATIVE (NEGATIVE); COLOR,URINE PALE YELLOW; GLUCOSE, URINE (UA) 4+ (NEGATIVE); KETONES,URINE NEGATIVE (NEGATIVE); LEUKOCYTE ESTERASE ,URINE 2+ (NEGATIVE); NITRITE,URINE NEGATIVE (NEGATIVE); PH,URINE 6 (4.5-8.0); PROTEIN,URINE NEGATIVE (NEGATIVE); UROBILINOGEN,URINE NORMAL MG/DL (0.0-1.0)
[2018-09-19 20:26] LABS: ANION GAP 8 mmol/L (5-15); BLOOD UREA NITROGEN 8 mg/dL (7-18); CALCIUM 9.2 MG/DL (8.5-10.1); CARBON DIOXIDE 28 MMOL/L (21-32); CHLORIDE 95 MMOL/L (98-107); CREATININE 0.7 MG/DL (0.55-1.30); POTASSIUM 3.4 MMOL/L (3.5-5.1); SODIUM 131 MMOL/L (136-145)
[2018-09-19 20:30] LABS: ALANINE AMINOTRANSFERASE 70 U/L (12-78); ALBUMIN 3.9 G/DL (3.4-5.0); ALBUMIN/GLOBULIN RATIO 0.8 (1.0-2.7); ALKALINE PHOSPHATASE 120 U/L (46-116); ASPARTATE AMINO TRANSFERASE 56 U/L (15-37); BILIRUBIN,TOTAL 0.6 MG/DL (0.2-1.0)
[2018-09-19] MEDS: Morphine Sulfate 2mg/ml Inj IVP ONE (20:31)
[2018-09-19] MEDS ORDERED: LEVAQUIN500 MG ORAL (22:27)
[2018-09-19] MEDS ORDERED: GUAIFENESIN-CO118 M1 ORAL (22:27)
[2018-09-19] MEDS: Levofloxacin 500mg tab ORAL ONE (22:29)
--- NOTE | 2018-09-19 22:42 | NUR ---
ED Nurse Note: pt is dc per ermd order, pt is aox4, pt was given dc instruction and prescription, pt verbalized understandng, pt is able to walk with steady gait, pt took all belonings pt is on room air, pt vss at the moment
[2018-09-19 22:43] VITALS: BP 128/72
--- NOTE | 2018-09-20 08:53 | Diagnostic Imaging Report ---
Indication: Cough, shortness of breath Technique: One view of the chest Comparison: 03/16/2018 Findings: Lungs and pleural spaces are clear. The heart size is normal. Findings are unchanged Impression: No acute process
--- NOTE | 2018-09-20 16:53 | Cardiology Report ---
APPROVED REPORT EKG Measurement Heart [id number] Sinus tachycardia N[address] ST abnormality Abnormal ECG
== END 2018-09-19 22:42 | disposition home or self-care (01) ==
LOC: EMR 20:26
DX: J20.9 Acute bronchitis, unspecified (principal); N39.0 Urinary tract infection, site not specified; E11.65 Type 2 diabetes mellitus with hyperglycemia; I10 Essential (primary) hypertension
CPT/HCPCS: 36415; 71045; 80053; 81003; 81025; 83690; 83735; 85025; 86710; 93005; 94640; 96361; 96374; 96375; 99284; J2270; J2405; S0028

== ENCOUNTER 2018-10-28 17:43 | Emergency (ER) | payer MEDICAID ==
[~2018-10-28] VITALS: Ht 162.6 cm; Wt 81.6 kg
[~2018-10-28 17:43] MED LIST changes: +GUAIFENESIN-CO118 M1 ORAL; +JANUVIA25 MG ORAL; +LEVAQUIN500 MG ORAL
[2018-10-28 17:50] VITALS: BP 148/97
--- NOTE | 2018-10-28 17:50 | NUR ---
EKG WAS DONE, ORIGINAL WAS GIVEN TO . NO ORDERS WAS PLACED AT THIS TIME.
--- NOTE | 2018-10-28 17:50 | NUR ---
ED Nurse Note: AMBULATED IN TO ER DUE TO CP X 2 DAYS. PT REPORTS PAIN 8/10 LEFT UPPER CHEST RADIATING TO UPPER BACK. C/O NAUSEA. DENIES SOB. PT REPORTS THAT SHE TOOK LISINOPRIL 20MG DAILY, TODAY. PAIN REMAINS AT REST.
[2018-10-28] MEDS ORDERED: ROBAXIN-750750 MG PO (18:19)
[2018-10-28] MEDS ORDERED: TYLENOL EXTRA500 MG ORAL (18:19)
[2018-10-28 18:29] VITALS: BP 139/83
--- NOTE | 2018-10-28 18:30 | NUR ---
ED Nurse Note: Pt cleared by health care Provider for discharge. DC instructions/prescription was given and explained to pt and verbalized understanding of teachings. All medical deviecs such as ID band removed. Pt is AAO x4, ambulatory and left with all personal belongings.
--- NOTE | 2018-10-28 19:22 | Emergency Room Report ---
History of Present Illness General Chief Complaint: Chest Pain Source: Patient, Medical Record Present Illness HPI 28-year-old female presents ED for evaluation. Complaining of chest pain 2 days. Midsternal, 8 out of 10, radiating to the back. Denies shortness of breath. Denies fevers or chills. Denies cough. History of diabetes. Denies smoking or drug use. No other aggravating relieving factors. Denies any other associated symptoms Allergies: Coded Allergies: AMOXICILLIN (Verified Allergy, Unknown, 01/05/18) PENICILLINS (Verified Allergy, Unknown, 01/05/18) Patient History Past Medical History: DM, HTN Past Surgical History: none Pertinent Family History: none Social History: Denies: smoking, alcohol use, drug use Last Menstrual Period: 10/21/2018 Now: Yes : 2 Para: 2 Immunizations: UTD Reviewed Nursing Documentation: PMH: Agreed; PSxH: Agreed Nursing Documentation-PMH Hx Hypertension: Yes Hx Diabetes: Yes Review of Systems All Other Systems: negative except mentioned in HPI Physical Exam Vital Signs Date Time Temp Pulse Resp B/P (MAP) Pulse Ox O2 Delivery O2 Flow Rate FiO2 10/28/18 17:46 98.4 105 18 166/100 97 Room Air Sp02 EP Interpretation: reviewed, normal General Appearance: no apparent distress, alert, GCS 15, non-toxic Head: normocephalic, atraumatic Eyes: bilateral eye normal inspection, bilateral eye PERRL ENT: hearing grossly normal, normal pharynx, no angioedema, normal voice Neck: full range of motion, supple/symm/no masses Respiratory: lungs clear, normal breath sounds, speaking full sentences, other - reproducible sternal chest pain Cardiovascular #1: regular rate, rhythm, no edema Cardiovascular #2: 2+ carotid (R), 2+ carotid (L), 2+ radial (R), 2+ radial (L) , 2+ dorsalis pedis (R), 2+ dorsalis pedis (L) Gastrointestinal: normal bowel sounds, non tender, soft, non-distended, no guarding, no rebound Rectal: deferred Genitourinary: normal inspection, no CVA tenderness Musculoskeletal: back normal, gait/station normal, normal range of motion, non- tender Neurologic: alert, oriented x3, responsive, motor strength/tone normal, sensory intact, speech normal Psychiatric: judgement/insight normal, memory normal, mood/affect normal, no suicidal/homicidal ideation Reflexes: 3+ bicep (R), 3+ bicep (L), 3+ tricep (R), 3+ tricep (L), 3+ knee (R) , 3+ knee (L) Skin: normal color, no rash, warm/dry, well hydrated Lymphatic: no adenopathy Medical Decision Making Diagnostic Impression: Primary Impression: Chest wall pain ER Course Hospital Course 28-year-old female presents ED complaining of chest pain Differential diagnoses include: Rib fracture, NH/unstable angina, contusion, muscle strain Clinical course Patient placed on stretcher. After initial history, physical exam reveals female in no acute distress. There is reproducible midsternal pain. Lungs clear. Heart sounds normal. I ordered EKGnormal sinus rhythm no acute ischemic changes interpreted by me Discussed findings with patient. Pain is likely muscular. Patient has been seen recently for similar presentation and had full workup including labs and troponins which were negative. At the time pain appeared muscular based on ED assessment. safe for discharge with close outpatient follow-up. States she has a PMD I. I feel this is a highly complex case requiring extensive working including EKG/Rhythm strip, Xray/CT/US, Blood/urine lab work, repeat exams while in ED, and administration of strong opiates/narcotics for pain control, admission to hospital or close patient follow up. Diagnosis - chest wall pain Stable and discharged to home with prescription for tylenol, robaxin. Instructed to followup with PMD. Return to ED if symptoms recur or worsen EKG Diagnostic Results Rate: normal Rhythm: NSR ST Segments: no acute changes ASA given to the pt in ED: No Rhythm Strip Diag. Results EP Interpretation: yes Rhythm: NSR, no PVC's, no ectopy Last Vital Signs Date Time Temp Pulse Resp B/P (MAP) Pulse Ox O2 Delivery O2 Flow Rate FiO2 10/28/18 18:29 98.4 92 23 139/83 100 Room Air Status: improved Disposition: HOME, SELF-CARE Condition: Stable Scripts Methocarbamol* (ROBAXIN-750*) 750 Mg Tablet 750 MG PO TID, #21 TAB 0 Refills Prov: Macario Snyder MD 10/28/18 Acetaminophen* (TYLENOL EXTRA STRENGTH*) 500 Mg Tablet 500 MG ORAL Q8H PRN for Prn Headache/Temp > 101, #30 TAB 0 Refills Prov: Macario Snyder MD 10/28/18 Referrals: NON PHYSICIAN (PCP) Patient Instructions: Chest Wall Pain, [id number] Macario Snyder MD Oct 28, 2018 19:22
== END 2018-10-28 18:30 | disposition home or self-care (01) ==
LOC: EMR 18:23
DX: R07.89 Other chest pain (principal); I10 Essential (primary) hypertension; E11.9 Type 2 diabetes mellitus without complications; Z88.0 Allergy status to penicillin; Z88.1 Allergy status to other antibiotic agents
CPT/HCPCS: 93005; 99283

== ENCOUNTER 2018-12-13 16:48 | Emergency (ER) | payer MEDICAID ==
[~2018-12-13] VITALS: Ht 162.6 cm; Wt 83.9 kg
[~2018-12-13 16:48] MED LIST changes: +ROBAXIN-750750 MG PO
[2018-12-13 17:26] VITALS: BP 123/82
--- NOTE | 2018-12-13 17:29 | NUR ---
ED Nurse Note: Patient walked in to ER c/o severe headache 8/10 for 2 days. pt aao x4 and steady but weak gait due to severe headache. skin clean and intact. pt calm and cooperative.
--- NOTE | 2018-12-13 17:29 | Emergency Room Report ---
History of Present Illness General Chief Complaint: Headache Source: Patient Present Illness HPI Patient is had 2 days of headache. It's bitemporal and also right side of her neck. Last week she had a sore throat. At this time she has some nausea without any vomiting. She's had loose stools that it been yellow in color. She 's not sure she's at this time. She took Tylenol 2 hours ago and also took Motrin last night. [id number] medication and hasn't helped her. She complains of 8/10 pain that's somewhat pounding and aching. There is no weakness. Patient is diabetic and states her blood sugars are "okay". She is on oral medications and does not take insulin. No fevers,chest pain, palpitations, dysuria, abdominal pain, shortness of breath , depression, visual changes. She states she is never had a headache like this. But not the most severe headache that she is had in her life. Was gradual onset. She is not taking blood thinners. Allergies: Coded Allergies: AMOXICILLIN (Verified Allergy, Unknown, 01/05/18) PENICILLINS (Verified Allergy, Unknown, 01/05/18) Patient History Past Medical History: see triage record Last Menstrual Period: 4-15 Now: No Reviewed Nursing Documentation: PMH: Agreed; PSxH: Agreed Nursing Documentation-PMH Past Medical History: No History, Except For Hx Hypertension: Yes Hx Diabetes: Yes Review of Systems All Other Systems: negative except mentioned in HPI Physical Exam Vital Signs Date Time Temp Pulse Resp B/P (MAP) Pulse Ox O2 Delivery O2 Flow Rate FiO2 12/13/18 17:00 98.8 101 20 98 Room Air 12/13/18 17:26 123/82 Sp02 EP Interpretation: reviewed, normal General Appearance: well appearing, no apparent distress, GCS 15, non-toxic Head: normocephalic, atraumatic Eyes: bilateral eye normal inspection, bilateral eye PERRL, bilateral eye EOMI ENT: normal pharynx, moist mucus membranes Neck: supple, no meningismus Respiratory: chest non-tender, lungs clear, normal breath sounds Cardiovascular #1: regular rate, rhythm Cardiovascular #2: 2+ radial (R) Gastrointestinal: normal inspection, normal bowel sounds, non tender, no mass, non-distended Musculoskeletal: back normal, gait/station normal, normal range of motion Neurologic: alert, oriented x3, vibration analyst III-XII nml as tested, motor strength/tone normal, DTRs symmetric, sensory intact, cerebellar normal, normal gait, speech normal Psychiatric: mood/affect normal Skin: normal inspection, no rash, warm/dry, other - Tattoos Medical Decision Making Diagnostic Impression: Primary Impression: Viral syndrome Additional Impressions: Headache Qualified Codes: R51 - Headache Hyperglycemia ER Course Patient presents with headache, chills and nausea with loose stools 1 week after having a sore throat. Differential includes viral syndrome, tension headache, meningitis, early , muscle spasm amongst others. Clinically she does not have meningitis. Evaluation will be with labs including urine . Treatment with IV hydration, Reglan and Benadryl until test comes back. Labs unremarkable except for glucose of 211. Patient given Toradol. Patient states pain resolved completely and she is able to tolerate oral intake. Discussed with patient elevated glucose. She states that she will have close follow-up with her doctor. Patient stable for outpatient observation and treatment. Laboratory Tests Test 12/13/18 17:00 12/13/18 18:00 Urine Color Pale yellow Urine Appearance Clear Urine pH 5 (4.5-8.0) Urine Specific [place] 1.010 (1.005-1.035) Urine Protein Negative (NEGATIVE) Urine Glucose (UA) 1+ (NEGATIVE) H Urine Ketones Negative (NEGATIVE) Urine Blood Negative (NEGATIVE) Urine Nitrite Negative (NEGATIVE) Urine Bilirubin Negative (NEGATIVE) Urine Urobilinogen Normal MG/DL (0.0-1.0) Urine Leukocyte Esterase Negative (NEGATIVE) Urine HCG, Qualitative Negative (NEGATIVE) White Blood Count 10.2 K/UL (4.8-10.8) Red Blood Count 4.71 M/UL (4.20-5.40) Hemoglobin 13.6 G/DL (12.0-16.0) Hematocrit 37.9 % (37.0-47.0) Mean Corpuscular Volume 80 FL (80-99) Mean Corpuscular Hemoglobin 29.0 PG (27.0-31.0) Mean Corpuscular Hemoglobin Concent 36.0 G/DL (32.0-36.0) Red Cell Distribution Width 11.6 % (11.6-14.8) Platelet Count 302 K/UL (150-450) Mean Platelet Volume 5.4 FL (6.5-10.1) L Neutrophils (%) (Auto) 56.4 % (45.0-75.0) Lymphocytes (%) (Auto) 36.5 % (20.0-45.0) Monocytes (%) (Auto) 4.3 % (1.0-10.0) Eosinophils (%) (Auto) 1.8 % (0.0-3.0) Basophils (%) (Auto) 1.0 % (0.0-2.0) Prothrombin Time 9.8 SEC (9.30-11.50) Prothrombin Time INR 0.9 (0.9-1.1) PTT 25 SEC (23-33) Sodium Level 135 MMOL/L (136-145) L Potassium Level 4.1 MMOL/L (3.5-5.1) Chloride Level 100 MMOL/L (98-107) Carbon Dioxide Level 27 MMOL/L (21-32) Anion Gap 8 mmol/L (5-15) Blood Urea Nitrogen 11 mg/dL (7-18) Creatinine 0.6 MG/DL (0.55-1.30) Estimate Glomerular Filtration Rate > 60 mL/min (>60) Glucose Level 211 MG/DL (74-106) H Calcium Level 9.4 MG/DL (8.5-10.1) Total Bilirubin 0.4 MG/DL (0.2-1.0) Aspartate Amino Transferase (AST) 25 U/L (15-37) Alanine Aminotransferase (ALT) 43 U/L (12-78) Alkaline Phosphatase 96 U/L (46-116) Total Creatine Kinase 70 U/L (26-308) Troponin I 0.000 ng/mL (0.000-0.056) Total Protein 8.0 G/DL (6.4-8.2) Albumin 3.6 G/DL (3.4-5.0) Globulin 4.4 g/dL Albumin/Globulin Ratio 0.8 (1.0-2.7) L EKG Diagnostic Results Rate: normal Rhythm: NSR ST Segments: no acute changes Rhythm Strip Diag. Results EP Interpretation: yes Rhythm: NSR, no PVC's, no ectopy Last Vital Signs Date Time Temp Pulse Resp B/P (MAP) Pulse Ox O2 Delivery O2 Flow Rate FiO2 12/13/18 21:30 98.3 96 20 122/71 100 Room Air Status: improved Disposition: HOME, SELF-CARE Condition: Improved Scripts Ibuprofen* (MOTRIN*) 600 Mg Tablet 600 MG ORAL Q6H PRN for For Pain, #20 TAB Prov: Smooth Chang MD 12/13/18 Ondansetron Odt* (ZOFRAN ODT*) 4 Mg Tab.rapdis 4 MG BC EVERY 8 HOURS, #6 TAB 1 Refill Prov: Smooth Chang MD 12/13/18 Smooth Chang MD December 13, 2018 17:29
[2018-12-13] MEDS ORDERED: DiphenhydrAMINE 50mg/ml Inj IVP ONE (17:30)
[2018-12-13] MEDS ORDERED: Metoclopramide 10mg/2ml Inj IVP ONE (17:30)
[2018-12-13 18:21] LABS: APPEARANCE,URINE CLEAR; BILIRUBIN, URINE NEGATIVE (NEGATIVE); COLOR,URINE PALE YELLOW; GLUCOSE, URINE (UA) 1+ (NEGATIVE); KETONES,URINE NEGATIVE (NEGATIVE); LEUKOCYTE ESTERASE ,URINE NEGATIVE (NEGATIVE); NITRITE,URINE NEGATIVE (NEGATIVE); PH,URINE 5 (4.5-8.0); PROTEIN,URINE NEGATIVE (NEGATIVE); UROBILINOGEN,URINE NORMAL MG/DL (0.0-1.0)
[2018-12-13 18:30] LABS: EOSINOPHILS % (AUTO) 1.8 % (0.0-3.0); HEMATOCRIT 37.9 % (37.0-47.0); HEMOGLOBIN 13.6 G/DL (12.0-16.0); LYMPHOCYTES % (AUTO) 36.5 % (20.0-45.0); MEAN CORPUSCULAR VOLUME 80 FL (80-99); MONOCYTES % (AUTO) 4.3 % (1.0-10.0); NEUTROPHILS % (AUTO) 56.4 % (45.0-75.0); PLATELET COUNT 302 K/UL (150-450); RED BLOOD COUNT 4.71 M/UL (4.20-5.40); RED CELL DISTRIBUTION WIDTH 11.6 % (11.6-14.8); WHITE BLOOD COUNT 10.2 K/UL (4.8-10.8)
[2018-12-13 18:31] LABS: ANION GAP 8 mmol/L (5-15); BLOOD UREA NITROGEN 11 mg/dL (7-18); CALCIUM 9.4 MG/DL (8.5-10.1); CARBON DIOXIDE 27 MMOL/L (21-32); CHLORIDE 100 MMOL/L (98-107); CREATININE 0.6 MG/DL (0.55-1.30); POTASSIUM 4.1 MMOL/L (3.5-5.1); SODIUM 135 MMOL/L (136-145)
[2018-12-13 18:39] LABS: ALANINE AMINOTRANSFERASE 43 U/L (12-78); ALBUMIN 3.6 G/DL (3.4-5.0); ALBUMIN/GLOBULIN RATIO 0.8 (1.0-2.7); ALKALINE PHOSPHATASE 96 U/L (46-116); ASPARTATE AMINO TRANSFERASE 25 U/L (15-37); BILIRUBIN,TOTAL 0.4 MG/DL (0.2-1.0); CREATINE KINASE 70 U/L (26-308)
[2018-12-13] MEDS ORDERED: Ketorolac 30mg Inj IV ONE (18:45)
[2018-12-13 18:46] LABS: INR 0.9 (0.9-1.1)
--- NOTE | 2018-12-13 19:23 | NUR ---
HAND-OFF: Report given to SUDEEP Miguel. no orders to carry at this time.
--- NOTE | 2018-12-13 19:35 | NUR ---
ED Nurse Note: RECIEVED REPORT FROM AM NURSE TO RESUME CARE, PT IN BED AWAKE, ALERT AND ORIENTED X 4, PT WAS MEDICATED FOR HEADACHE AND STATES MEDS EFFECTIVE WITH PAIN LEVEL AT 0/10, PT AMBULATED TO BATHROOM WITH STEADY GAIT, TOLERATES WELL, IV SITE INTACT AND PATENT, DENIES CP, SOB, NAUSEA OR VOMITING OR DIZZINESS, MD AWAER OF PT FEELING BETTER, WILL RESUME CARE ORDERED AND CLOSELY MONITOR.
[2018-12-13 19:45] VITALS: BP 128/80
[2018-12-13 21:15] VITALS: BP 122/71
[2018-12-13] MEDS ORDERED: ONDANSETRON ODT4 MG BC (21:18)
[2018-12-13] MEDS ORDERED: IBUPROFEN600 MG ORAL (21:18)
--- NOTE | 2018-12-13 21:20 | NUR ---
ER DISCHARGE NOTE: Patient is cleared to be discharged per ERMD, pt is aox4, on room air, with stable vital signs. pt was given dc and prescription instructions, pt was able to verbalize understanding, pt id band and iv site removed without complications. pt is able to ambulate with steady gait. pt took all belongings.
[2018-12-13 21:30] VITALS: BP 122/71
== END 2018-12-13 21:30 | disposition home or self-care (01) ==
LOC: EMR 17:34
DX: B34.9 Viral infection, unspecified (principal); R51 Headache; E11.65 Type 2 diabetes mellitus with hyperglycemia; I10 Essential (primary) hypertension; Z88.0 Allergy status to penicillin; M54.2 Cervicalgia
CPT/HCPCS: 36415; 80053; 81003; 81025; 82550; 84484; 85025; 85610; 85730; 93005; 96361; 96374; 96375; 99284; J1200; J1885; J2765

== ENCOUNTER 2019-02-16 12:05 | Emergency (ER) | payer MEDICAID ==
[~2019-02-16] VITALS: Ht 162.6 cm; Wt 81.6 kg
[~2019-02-16 12:05] MED LIST changes: +ONDANSETRON ODT4 MG BC
--- NOTE | 2019-02-16 13:02 | Emergency Room Report ---
History of Present Illness General Chief Complaint: Lower Extremity Injury Source: Medical Record (Brayan Caceres) Present Illness HPI 29-year-old female with history of type 2 diabetes currently controlled with metformin here complaining of sudden onset of left knee pain that started yesterday as she was walking. Patient denies any direct fall or injury to the knee also denying lifting any heavy objects. Patient denies twisting of the knee. However it is obese and is rating his pain a little pressure on tenderness. Denies tingling and numbness, denies pain radiation rating the pain 7 out of 10 in pain. Has taken Advil and Tylenol for patient agrees with no improvement. Denies other associated symptoms such as calf tenderness, cyanosis chest pain, shortness of breath, palpitation, abdominal pain, headache and dizziness. (Brayan Caceres) Allergies: Coded Allergies: AMOXICILLIN (Verified Allergy, Unknown, 01/05/18) PENICILLINS (Verified Allergy, Unknown, 01/05/18) Patient History Past Medical History: see triage record Past Surgical History: unable to obtain Pertinent Family History: none Last Menstrual Period: 01/17/19 Now: No Immunizations: UTD Reviewed Nursing Documentation: PMH: Agreed; PSxH: Agreed (Brayan Caceres) Nursing Documentation-PMH Past Medical History: No History, Except For Hx Hypertension: Yes Hx Diabetes: Yes (Brayan Caceres) Review of Systems All Other Systems: negative except mentioned in HPI (Brayan Caceres) Physical Exam Vital Signs Date Time Temp Pulse Resp B/P (MAP) Pulse Ox O2 Delivery O2 Flow Rate FiO2 02/16/19 12:13 98.1 100 18 136/86 (103) 98 Room Air Sp02 EP Interpretation: reviewed, normal General Appearance: normal inspection, well appearing, no apparent distress, alert, GCS 15 Head: normocephalic, atraumatic Eyes: bilateral eye normal inspection, bilateral eye PERRL ENT: normal ENT inspection, hearing grossly normal, normal pharynx Neck: normal inspection, full range of motion, supple, thyroid normal, no meningismus, no bony tend Respiratory: normal inspection, chest non-tender, lungs clear, normal breath sounds Cardiovascular #1: normal inspection, normal peripheral pulses, regular rate, rhythm, no edema, no gallop, no murmur Cardiovascular #2: 2+ dorsalis pedis (R), 2+ dorsalis pedis (L) Gastrointestinal: normal inspection, non tender, soft Genitourinary: no CVA tenderness Musculoskeletal: back normal, digits/nails normal, gait/station normal, normal range of motion, non-tender, no calf tenderness, pelvis stable, Tab's Sign negative Neurologic: normal inspection, alert, oriented x3, responsive Psychiatric: normal inspection, judgement/insight normal, memory normal, mood/ affect normal Skin: no rash, normal color Lymphatic: normal inspection, no adenopathy (Brayan Caceres) Medical Decision Making PA Attestation Diagnosis and treatment plans were reviewed and discussed with my supervising physician Dr. Orellana (Brayan Caceres) Diagnostic Impression: Primary Impression: Knee strain ER Course 29-year-old female with history of type 2 diabetes currently controlled with metformin here complaining of sudden onset of left knee pain that started yesterday as she was walking. Patient denies any direct fall or injury to the knee also denying lifting any heavy objects. Patient denies twisting of the knee. However it is obese and is rating his pain a little pressure on tenderness. Denies tingling and numbness, denies pain radiation rating the pain 7 out of 10 in pain. Has taken Advil and Tylenol for patient agrees with no improvement. Denies other associated symptoms such as calf tenderness, cyanosis chest pain, shortness of breath, palpitation, abdominal pain, headache and dizziness. Ddx considered but are not limited to: Knee sprain, contusion, fracture, strain Vital signs: are WNL, pt. is afebrile H&PE are most consistent with: Knee strain ORDERS: Left knee x-ray, naproxen, Robaxin ED INTERVENTIONS: Osman wrap left knee DISCHARGE: At this time pt. is stable for d/c to home. Will provide printed patient care instructions, and any necessary prescriptions. Care plan and follow up instructions have been discussed with the patient prior to discharge. Patient to follow-up with a primary care provider for further assessment keep the affected area elevated alternate between icing and heating and also weight loss recommended. Negative urine (Brayan Caceres) ER Course I discussed the care of the patient with Brayan SIMPSON on 02/16/2019. I agree with the findings and plan as documented in the note. (Ap Orellana M.D.) Other X-Ray Diagnostic Results Other X-Ray Diagnostic Results : # of Views/Limited Vs Complete: 3 View Indication: Pain EP Interpretation: Yes PA Xray: Interpretation reviewed, by supervising MD, and agrees with findings. Interpretation: no dislocation, no soft tissue swelling, no fractures Impression: No acute disease Electronically Signed by: brayan alegre PA-C (Brayan Caceers) Last Vital Signs Date Time Temp Pulse Resp B/P (MAP) Pulse Ox O2 Delivery O2 Flow Rate FiO2 02/16/19 12:13 98.1 100 18 136/86 (103) 98 Room Air (Brayan Caceres) Disposition: HOME, SELF-CARE Condition: Stable Scripts Methocarbamol* (ROBAXIN*) 500 Mg Tablet 500 MG PO TID, #21 TAB 0 Refills Prov: Brayan Caceres 02/16/19 Naproxen* (NAPROXEN*) 500 Mg Tablet 500 MG ORAL TWICE A DAY, #30 TAB Prov: Brayan Caceres 02/16/19 Referrals: NON PHYSICIAN (PCP) Patient Instructions: Knee Pain, [id number] Additional Instructions: Take medication as directed elevate the affected area when seated alternate between icing and heating the affected area. Take medication as directed. Weight loss highly advised as less pressure to support and needs will help with the healing process. Follow-up with a primary care provider for further assessment. Brayan Caceres Feb 16, 2019 13:02 Ap Orellana M.D. Feb 16, 2019 16:00
[2019-02-16] MEDS ORDERED: NAPROXEN500 M2 ORAL (13:04)
[2019-02-16] MEDS ORDERED: ROBAXIN500 MG PO (13:04)
[2019-02-16 13:09] VITALS: BP 128/77
--- NOTE | 2019-02-16 13:09 | NUR ---
ER DISCHAR Pt as seen due to left knee pain. Denies injury. Osman bandage wrapped on left knee. Patient is cleared to be discharged per PA, pt is aox4, on room air, with stable vital signs. pt was given dc and prescription instructions, pt was able to verbalize understanding, pt id band removed without complications. pt is able to ambulate with steady gait. pt took all belongings.
--- NOTE | 2019-02-16 15:06 | Diagnostic Imaging Report ---
INDICATION: Knee Pain COMPARISON: None 3 views of the left knee were obtained. FINDINGS: No acute fracture, malalignment, or joint effusion are identified. Joint space is relatively well-maintained. Impression: Negative for acute injury
== END 2019-02-16 13:09 | disposition home or self-care (01) ==
LOC: EMR 12:22
DX: S86.812A Strain of other muscle(s) and tendon(s) at lower leg level, left leg, initial encounter (principal); X58.XXXA Exposure to other specified factors, initial encounter; Y92.9 Unspecified place or not applicable; I10 Essential (primary) hypertension; E11.9 Type 2 diabetes mellitus without complications; Z88.0 Allergy status to penicillin
CPT/HCPCS: 81025; 99283

== ENCOUNTER 2019-07-03 16:56 | Emergency (ER) | payer MEDICAID ==
[~2019-07-03] VITALS: Ht 162.6 cm; Wt 83.9 kg
[~2019-07-03 16:56] MED LIST changes: +NAPROXEN500 M2 ORAL; +ROBAXIN500 MG PO
[2019-07-03 17:30] VITALS: BP 133/99
[2019-07-03] MEDS ORDERED: Omnipaque-300 100ml vial INJ PRN (17:30)
--- NOTE | 2019-07-03 17:30 | NUR ---
ED Nurse Note: Pt walked into ER with c/o abdominal pain where was 2 years ago. Pain 7/10 has been present for past 3 days. Denies numbness/tingling or radiation. No acute distress.
[2019-07-03 18:30] LABS: ANION GAP 11 mmol/L (5-15); BLOOD UREA NITROGEN 12 mg/dL (7-18); CALCIUM 9.1 MG/DL (8.5-10.1); CARBON DIOXIDE 25 MMOL/L (21-32); CHLORIDE 96 MMOL/L (98-107); CREATININE 0.6 MG/DL (0.55-1.30); POTASSIUM 3.8 MMOL/L (3.5-5.1); SODIUM 132 MMOL/L (136-145)
[2019-07-03 18:33] LABS: INR 0.9 (0.9-1.1)
[2019-07-03 18:35] LABS: ALANINE AMINOTRANSFERASE 49 U/L (12-78); ALBUMIN 4.2 G/DL (3.4-5.0); ALKALINE PHOSPHATASE 110 U/L (46-116); ASPARTATE AMINO TRANSFERASE 23 U/L (15-37); BILIRUBIN,TOTAL 0.3 MG/DL (0.2-1.0)
[2019-07-03 18:38] LABS: APPEARANCE,URINE CLEAR; BILIRUBIN, URINE NEGATIVE (NEGATIVE); COLOR,URINE PALE YELLOW; GLUCOSE, URINE (UA) 4+ (NEGATIVE); KETONES,URINE 1+ (NEGATIVE); LEUKOCYTE ESTERASE ,URINE NEGATIVE (NEGATIVE); NITRITE,URINE NEGATIVE (NEGATIVE); PH,URINE 7 (4.5-8.0); PROTEIN,URINE NEGATIVE (NEGATIVE); UROBILINOGEN,URINE NORMAL MG/DL (0.0-1.0)
[2019-07-03 18:51] LABS: EOSINOPHILS % (AUTO) 1.8 % (0.0-3.0); HEMATOCRIT 44.6 % (37.0-47.0); HEMOGLOBIN 15.3 G/DL (12.0-16.0); LYMPHOCYTES % (AUTO) 31.6 % (20.0-45.0); MEAN CORPUSCULAR VOLUME 80 FL (80-99); MONOCYTES % (AUTO) 4.4 % (1.0-10.0); NEUTROPHILS % (AUTO) 61.2 % (45.0-75.0); PLATELET COUNT 319 K/UL (150-450); RED BLOOD COUNT 5.56 M/UL (4.20-5.40); RED CELL DISTRIBUTION WIDTH 11.8 % (11.6-14.8)
[2019-07-03] MEDS ORDERED: Ketorolac 30mg Inj IV ONE (19:15)
[2019-07-03] MEDS ORDERED: cefTRIAXone 1 GM in NS 55 ML IVPB ONE (19:30)
--- NOTE | 2019-07-03 19:37 | NUR ---
ED Nurse Note: Patient tolerated pain medication administration well. Patient currently receiving IV antibiotics, will continue to monitor.
--- NOTE | 2019-07-03 19:50 | Diagnostic Imaging Report ---
Clinical Indication: Abdominal pain 7 out of 10 Technique: No oral contrast utilized, per emergency room physician request IV administration nonionic contrast. Venous phase spiral acquisition obtained through the abdomen and pelvis. Multiplanar reconstructions were generated. Total dose length product 1186 mGycm. CTDIvol(s) 18 mGy. Dose reduction achieved using automated exposure control Comparison: none Findings: The appendix is not definitely visualized, but no findings to suggest acute appendicitis are evident. There is no evidence of colonic diverticulosis or diverticulitis. No small bowel distention. No free or loculated intraperitoneal gas or fluid is evident. Distal esophagus, stomach, duodenum are unremarkable. The gallbladder has been removed. The liver, bile ducts, pancreas, spleen, adrenals, kidneys are all unremarkable. No renal or ureteral calculi, hydronephrosis, or hydroureter. There are 2 accessory splenules. Dominant follicle or corpus luteum, possibly partially collapsed, seen in the left ovary. Uterus and ovaries otherwise unremarkable. There is a section scar incidentally noted. Fat stranding and skin thickening in the right inguinal region is probably related to such, although more acute process is not completely excludable The included lung bases are clear. The bones demonstrate transitional anatomy at the lumbosacral junction. Impression: Right inguinal region skin thickening and fat stranding, probably related to a section scar although more active inflammation is not excludable. Correlate with clinical findings No acute abnormality demonstrated otherwise Prior cholecystectomy Incidental findings as noted This agrees with the preliminary interpretation provided overnight by [facility]erad[facility] service. The CT scanner at [facility] is accredited by the [employer] and the scans are performed using protocols designed to limit radiation exposure to as low as reasonably achievable to attain images of sufficient resolution adequate for diagnostic evaluation.
--- NOTE | 2019-07-03 20:48 | Emergency Room Report ---
History of Present Illness General Chief Complaint: Pelvic Pain Source: Patient Present Illness HPI 29-year-old female with history of type 2 diabetes currently on Victoza and metformin here complaining of pain and swelling at the incision site of C- section in the right lower quadrant. Patient had years ago. No pus drainage noted however warm to touch possible abscess versus cyst formation. Rating her pain 10 out of 10, denies fever and chills, tingling and numbness. Denies vaginal discharge, urinary frequency and urgency, diarrhea, nausea vomiting. Has not taken medication for symptom relief. Denies chest pain, shortness of breath, palpitation, and all other associated symptoms. Allergies: Coded Allergies: AMOXICILLIN (Verified Allergy, Unknown, 01/05/18) PENICILLINS (Verified Allergy, Unknown, 01/05/18) Patient History Past Medical History: see triage record Past Surgical History: unable to obtain Pertinent Family History: none Last Menstrual Period: 06/17/19 Now: No Immunizations: UTD Reviewed Nursing Documentation: PMH: Agreed; PSxH: Agreed Nursing Documentation-PMH Past Medical History Deferred: Patient Unconscious Past Medical History: No History, Except For Hx Diabetes: Yes Review of Systems All Other Systems: negative except mentioned in HPI Physical Exam Vital Signs Date Time Temp Pulse Resp B/P (MAP) Pulse Ox O2 Delivery O2 Flow Rate FiO2 07/03/19 17:01 98.2 93 18 144/99 (114) 99 Room Air Sp02 EP Interpretation: reviewed, normal General Appearance: no apparent distress, alert, GCS 15, non-toxic Head: normocephalic, atraumatic Eyes: bilateral eye normal inspection, bilateral eye PERRL ENT: hearing grossly normal, normal pharynx, no angioedema, normal voice Neck: full range of motion, supple/symm/no masses Respiratory: chest non-tender, lungs clear, normal breath sounds, no rhonchi, no respiratory distress, no retraction, no wheezing, speaking full sentences Gastrointestinal: soft, no mass, no organomegaly, no peritonitis, no bruit, non -distended, no guarding, no hernia, no pulsatile mass, no rebound, other - Cellulitis right lower quadrant and inguinal fold Genitourinary: no CVA tenderness Musculoskeletal: back normal, decreased range of motion, normal range of motion , inflammation, no calf tenderness Neurologic: alert, motor strength/tone normal, vice president [employer] insights III-XII nml as tested, EOM palsy, oriented Psychiatric: normal inspection, judgement/insight normal, memory normal, mood/ affect normal Skin: other - abscess/celulitis, RLQ Lymphatic: no adenopathy Procedures Incision and Drainage Incision and Drainage : Consent: Verbal Site: right LQ Blade Size: 11 I & D Procedure: betadine prep Wound Location: pelvis Wound's Depth, Shape: superficial Wound Length (cm): 1 Wound Explored: clean Anesthesia: Lidocaine w/ Epi Volume Anesthetic (ccs): 10 Splint Applied?: No Sling Applied?: No Patient Tolerated: Well Complications: None Medical Decision Making PA Attestation Diagnosis and treatment plans were reviewed and discussed with my supervising physician Dr. Orellana Diagnostic Impression: Primary Impression: Abdominal abscess ER Course 29-year-old female with history of type 2 diabetes currently on Victoza and metformin here complaining of pain and swelling at the incision site of C- section in the right lower quadrant. Patient had years ago. No pus drainage noted however warm to touch possible abscess versus cyst formation. Rating her pain 10 out of 10, denies fever and chills, tingling and numbness. Denies vaginal discharge, urinary frequency and urgency, diarrhea, nausea vomiting. Has not taken medication for symptom relief. Denies chest pain, shortness of breath, palpitation, and all other associated symptoms. Ddx considered but are not limited to : Cellulitis, , superficial infection, abscess superficial versus deep Vital signs: are WNL, pt. is afebrile H&PE are most consistent with: Subcutaneous superficial abscess of the right lower quadrants ORDERS: CBC, CMP, UA, lipase, urine test, lactic acid, blood cultures , CT scan, Bactrim DS, Keflex, ibuprofen 800, Tylenol 3 ED INTERVENTIONS: NS bolus, ceftriaxone, Toradol, Zofran DISCHARGE: At this time pt. is stable for d/c to home. Will provide printed patient care instructions, and any necessary prescriptions. Care plan and follow up instructions have been discussed with the patient prior to discharge. Patient to return to the emergency room in 24 to 48 hours for wound check, if worsening symptoms return sooner, if medication as directed EKG Diagnostic Results Rate: normal Rhythm: NSR ST Segments: no acute changes Other Impression No acute ST changes Chest X-Ray Diagnostic Results Chest X-Ray Diagnostic Results : Chest X-Ray Ordered: Yes # of Views/Limited/Complete: 1 View Indication: Other EP Interpretation: Yes TATIANA Xray: Interpretation reviewed, by supervising MD, and agrees with findings. Interpretation: no consolidation Impression: No acute disease Electronically Signed by: Yefri Wheatley PA-C CT/MRI/US Diagnostic Results CT/MRI/US Diagnostic Results : Imaging Test Ordered: CT abdomen pelvis with contrast Impression CT ABDOMEN & PELVIS With Contrast: Prior cholecystectomy. Small splenules. No hydronephrosis or obstructing stone. Mildly prominent fluid and gas-filled small bowel loops are nonspecific but may represent enteritis or ileus in the appropriate clinical setting. Appendix is not visualized, but no CT evidence of acute appendicitis. Probable collapsing cyst or corpus luteum in the left ovary. Mild prominence of the bladder wall is nonspecific. Please correlate with urinalysis if concerned for cystitis. Nonspecific fat stranding, most prominent in the subcutaneous fat of the right inguinal region. Question inflamed or infected sebaceous cyst versus small abscess and cellulitis. Lumbosacral transitional anatomy. Last Vital Signs Date Time Temp Pulse Resp B/P (MAP) Pulse Ox O2 Delivery O2 Flow Rate FiO2 07/03/19 19:59 98.0 07/03/19 17:30 78 18 133/99 99 Room Air Disposition: HOME, SELF-CARE Condition: Stable Scripts Acetaminophen With Codeine (T#3) (TYLENOL #3 TAB*) Y Tab 1 TAB ORAL Q8HR for 3 Days, #10 TAB Prov: Yefri Caceres 07/03/19 Ibuprofen (Ibu) 800 Mg Tablet 800 MG PO TID, #30 TAB Prov: Yefri Caceres 07/03/19 Trimethoprim/Sulfamethoxazole 160/800* (BACTRIM DS TABLET*) 1 Each Tablet 1 TAB ORAL TWICE A DAY for 7 Days, #14 TAB Prov: Yefri Caceres 07/03/19 Cephalexin* (KEFLEX*) 500 Mg Capsule 500 MG ORAL EVERY 6 HOURS for 7 Days, #28 CAP Prov: Yefri Caceres 07/03/19 Referrals: NON PHYSICIAN (PCP) Patient Instructions: Abscess, [id number] Additional Instructions: Take medication as directed, follow-up with your primary care provider, you need to have a wound check in 24 to 48 hours, if worsening symptoms return to the emergency room sooner. Return to the ER in 24 to 48 hours for wound check. Started antibiotics right away. Yefri Caceres Jul 03, 2019 20:48
[2019-07-03] MEDS ORDERED: BACTRIM DS TAB1 EAC1 ORAL (20:53)
[2019-07-03] MEDS ORDERED: CEPHALEXIN500 MG ORAL (20:53)
[2019-07-03] MEDS ORDERED: ACETAMINOPHEN-1 EAC1 ORAL (20:53)
[2019-07-03] MEDS ORDERED: IBU800 MG PO (20:53)
[2019-07-03] MEDS ORDERED: Bactrim-DS 1 tab ORAL ONE (21:00)
--- NOTE | 2019-07-03 21:08 | NUR ---
ED Nurse Note: Patient cleared by ER provider. patient is A&Ox4, ambulatory with steady gait. Patient vebalized understanding of discharge instructions and ID band removed. Patient departed with all belongings accompanied by her mom after administration of of the second antibiotic.
[2019-07-03 21:10] VITALS: BP 133/99
--- NOTE | 2019-07-04 10:15 | Diagnostic Imaging Report ---
Indication: Chest pain Technique: One view of the chest Comparison: 09/19/2018 Findings: Lungs and pleural spaces are clear. Heart size is normal. No significant change Impression: No acute process
--- NOTE | 2019-07-04 15:01 | Cardiology Report ---
APPROVED REPORT EKG Measurement Heart [id number] Normal sinus rhythm Normal ECG
== END 2019-07-03 21:10 | disposition home or self-care (01) ==
LOC: EMR 17:32
DX: L02.211 Cutaneous abscess of abdominal wall (principal); E11.9 Type 2 diabetes mellitus without complications; Z88.1 Allergy status to other antibiotic agents; Z88.0 Allergy status to penicillin
CPT/HCPCS: 10060; 36415; 71045; 74177; 80053; 81003; 81025; 83605; 84484; 85025; 85610; 85730; 87040; 93005; 96365; 96375; J0696; J1885; Q9967; Z7502; 99284

== ENCOUNTER 2019-07-10 13:16 | Emergency (ER) | payer MEDICAID ==
[~2019-07-10] VITALS: Ht 162.6 cm; Wt 81.6 kg
[~2019-07-10 13:16] MED LIST changes: +ACETAMINOPHEN-1 EAC1 ORAL; +BACTRIM DS TAB1 EAC1 ORAL; +CEPHALEXIN500 MG ORAL; +IBU800 MG PO
[2019-07-10 13:30] VITALS: BP 133/80
--- NOTE | 2019-07-10 13:35 | NUR ---
ED Nurse Note: Patient walked into ED from home c/o epigastric sternal chest pain 8/10 radiating to her left arm for 3 days, intermittenly, patient reports coughing for 3 days as well. patient is alert awake x4 ambulatory steady gait, breathing unlabored and even, patient placed on a nurse monitoring and placed on a hospital gown. family at bedside.
[2019-07-10] MEDS ORDERED: Acetaminophen 500mg (ES) tab ORAL ONE (13:45)
--- NOTE | 2019-07-10 13:53 | Emergency Room Report ---
History of Present Illness General Chief Complaint: Chest Pain Source: Patient Present Illness HPI 29-year-old female, no past medical history presents with cough, congestion, fever/chills/body aches, x3 days no aggravating relieving factors severity is moderate, constant, patient endorses an achy sensation generalized patient presents for evaluation Allergies: Coded Allergies: AMOXICILLIN (Verified Allergy, Unknown, 01/05/18) PENICILLINS (Verified Allergy, Unknown, 01/05/18) Patient History Past Medical History: see triage record Last Menstrual Period: 06/17/19 Now: No Reviewed Nursing Documentation: PMH: Agreed; PSxH: Agreed Nursing Documentation-PMH Past Medical History: No History, Except For Hx Diabetes: Yes Review of Systems All Other Systems: negative except mentioned in HPI Physical Exam Vital Signs Date Time Temp Pulse Resp B/P (MAP) Pulse Ox O2 Delivery O2 Flow Rate FiO2 07/10/19 13:27 100.0 119 16 133/80 (97) 97 Room Air Sp02 EP Interpretation: reviewed, normal General Appearance: well appearing, no apparent distress, alert Head: normocephalic, atraumatic Eyes: bilateral eye PERRL, bilateral eye EOMI ENT: uvula midline, dry mucus membranes, nasal congestion Neck: supple, thyroid normal, supple/symm/no masses Respiratory: lungs clear, no respiratory distress, no retraction, no accessory muscle use Cardiovascular #1: normal peripheral pulses, no edema, no gallop, no murmur, tachycardia Gastrointestinal: non tender, soft, no guarding, no rebound Musculoskeletal: normal inspection Neurologic: alert, oriented x3 Psychiatric: mood/affect normal Skin: no rash, warm/dry Medical Decision Making Diagnostic Impression: Primary Impression: Viral syndrome Additional Impression: Dehydration ER Course 29-year-old female presents with cough, congestion, concerning for viral syndrome, upper respiratory infection, pneumonia Chest x-ray negative, patient found to have a viral syndrome started her precautions were discussed, heart rate improved with fluid administration Disposition home with return precautions EKG Diagnostic Results EKG Time: 13:37 EP Interpretation: Sinus tachycardia, rate 113, QTc 471, no acute ST elevations , normal axis Rhythm Strip Diag. Results Rhythm Strip Time: 13:53 EP Interpretation: yes Rate: 114 Rhythm: other - Sinus tachycardia Chest X-Ray Diagnostic Results Chest X-Ray Diagnostic Results : Chest X-Ray Ordered: Yes # of Views/Limited/Complete: 1 View Indication: Other - Cough EP Interpretation: Yes Interpretation: no consolidation, no effusion, no pneumothorax, no acute cardiopulmonary disease Impression: No acute disease Electronically Signed by: Ap Orellana MD Last Vital Signs Date Time Temp Pulse Resp B/P (MAP) Pulse Ox O2 Delivery O2 Flow Rate FiO2 07/10/19 13:27 100.0 119 16 133/80 (97) 97 Room Air Disposition: HOME, SELF-CARE Condition: Stable Referrals: NON PHYSICIAN (PCP) [facility] Oscar Azar [facility] Departure Forms: Return to Work Return to Work Date: Jul 13, 2019 Patient Instructions: Dehydration, Adult, Eprv-[id number], Upper Respiratory Infection, Adult, [id number] Additional Instructions: The patient was provided with discharge instructions, notified to follow-up with a primary care doctor and or specialist in the next 24-48 hours, and to return to the ED if they have worsening of their symptoms. Please note that this report is being documented using CXOW[employer] technology. This can lead to erroneous entry secondary to incorrect interpretation by the dictating instrument. Ap Orellana MD Jul 10, 2019 13:53
[2019-07-10] MEDS ORDERED: VICTOZA 2-0.6 MG/0.1 SUBQ (14:41)
--- NOTE | 2019-07-10 14:49 | Diagnostic Imaging Report ---
Indication: Cough Technique: One view of the chest Comparison: 07/03/2019 Findings: Lungs and pleural spaces are clear. Heart size is normal. No significant change Impression: No acute process
[2019-07-10 15:00] VITALS: BP 135/79
--- NOTE | 2019-07-10 15:00 | NUR ---
ED Nurse Note: Pt states she is feeling better after receiving medication. She notes pain has gone down to 2/10. Pt remains tachy with HR 110, but vital signs otherwise remain stable. Pt is resting comfortably. Will continue to monitor.
[2019-07-10 15:25] VITALS: BP 121/84
--- NOTE | 2019-07-10 15:25 | NUR ---
ER DISCHARGE NOTE: Patient is cleared to be discharged per WILIAN, pt is aox4, on room air, with stable vital signs. pt was given dc instructions, pt was able to verbalize understanding, pt id band and iv site removed without complications. WILIAN Orellana aware of pt heart rate. Pt instructed to return to the ED if symptoms worsen. pt is able to ambulate with steady gait. pt took all belongings.
--- NOTE | 2019-07-11 16:25 | Cardiology Report ---
APPROVED REPORT EKG Measurement Heart [id number] NM [id number] Sinus tachycardia Otherwise normal ECG
== END 2019-07-10 15:25 | disposition home or self-care (01) ==
LOC: EMR 13:44
DX: B34.9 Viral infection, unspecified (principal); E86.0 Dehydration; E11.9 Type 2 diabetes mellitus without complications; Z88.0 Allergy status to penicillin; R00.0 Tachycardia, unspecified
CPT/HCPCS: 71045; 81025; 93005; 96360; J7030; J8540; Z7502; 99284

== ENCOUNTER 2019-10-06 16:57 | Emergency (ER) | payer MEDICAID ==
[~2019-10-06] VITALS: Ht 162.6 cm; Wt 81.6 kg
[~2019-10-06 16:57] MED LIST changes: +VICTOZA 2-0.6 MG/0.1 SUBQ
[2019-10-06 17:20] VITALS: BP 146/92
--- NOTE | 2019-10-06 17:20 | NUR ---
ED Nurse Note: Patient walked into ED from home c/o 9/10 aching headache that radiates to neck and shoulders. Denies recent injury. Patient AxO x 4, no s/s of acute distress.
[2019-10-06] MEDS ORDERED: Ketorolac 30mg Inj IM ONE (17:30)
--- NOTE | 2019-10-06 17:32 | Emergency Room Report ---
History of Present Illness General Chief Complaint: Headache Present Illness HPI 29-year-old female with history of diabetes and hypertension both controlled with medication here complaining of 3 weeks of frontal headache radiating to the posterior head and neck and shoulders throughout the day. Denies any head injury, syncope, dizziness and blurry vision. Has not been seen by an email marketer in a long time. Denies abdominal pain, nausea vomiting. Denies chest pain shortness of breath. Denies photophobia and blurry vision. Rates the pain 10 out of 10 at this time. Denies at this time when I asked her if there is any chance of . However I later found out that patient raised concerns upon arrival however I was never notified by my nurse assigned to the patient. Allergies: Coded Allergies: AMOXICILLIN (Verified Allergy, Unknown, 01/05/18) PENICILLINS (Verified Allergy, Unknown, 01/05/18) Patient History Past Medical History: see triage record Past Surgical History: none Pertinent Family History: none Last Menstrual Period: 09/13/2019 Now: No : 2 Para: 2 Reviewed Nursing Documentation: PMH: Agreed; PSxH: Agreed Nursing Documentation-PMH Hx Hypertension: Yes Hx Diabetes: Yes - type II History Of Psychiatric Problem: Yes - Anxiety Review of Systems All Other Systems: negative except mentioned in HPI Physical Exam Vital Signs Date Time Temp Pulse Resp B/P (MAP) Pulse Ox O2 Delivery O2 Flow Rate FiO2 10/06/19 17:09 98.4 100 18 146/92 (110) 98 Room Air Sp02 EP Interpretation: reviewed, normal General Appearance: no apparent distress, alert, GCS 15, non-toxic Head: normocephalic, atraumatic Eyes: bilateral eye normal inspection, bilateral eye PERRL ENT: hearing grossly normal, normal pharynx, no angioedema, normal voice Neck: full range of motion, supple, thyroid normal, no meningismus, no bony tend, supple/symm/no masses Respiratory: chest non-tender, lungs clear, normal breath sounds, no rhonchi, no respiratory distress, no retraction, no accessory muscle use, no wheezing, speaking full sentences Cardiovascular #1: regular rate, rhythm, no edema, no murmur, normal capillary refill Cardiovascular #2: 2+ carotid (R), 2+ carotid (L), 2+ radial (R), 2+ radial (L) Gastrointestinal: normal bowel sounds, non tender, soft, non-distended, no guarding, no rebound Rectal: deferred Genitourinary: no CVA tenderness Musculoskeletal: back normal, no calf tenderness Neurologic: alert, motor strength/tone normal, oriented x3, sensory intact, responsive, speech normal Psychiatric: judgement/insight normal, memory normal, mood/affect normal, no suicidal/homicidal ideation Skin: no rash, warm/dry Lymphatic: no adenopathy Medical Decision Making PA Attestation Diagnosis and treatment plans were reviewed and discussed with my supervising physician Dr. Orellana Diagnostic Impression: Primary Impression: Tension headache ER Course 29-year-old female with history of diabetes and hypertension both controlled with medication here complaining of 3 weeks of frontal headache radiating to the posterior head and neck and shoulders throughout the day. Denies any head injury, syncope, dizziness and blurry vision. Has not been seen by an email marketer in a long time. Denies abdominal pain, nausea vomiting. Denies chest pain shortness of breath. Denies photophobia and blurry vision. Rates the pain 10 out of 10 at this time. Denies at this time when I asked her if there is any chance of . However I later found out that patient raised concerns upon arrival however I was never notified by my nurse assigned to the patient. Ddx considered but are not limited to: Migraine headache with aura, migraine headache without aura, tension headache, cluster headache, TBI, subarachnoid hemorrhage Vital signs: are WNL, pt. is afebrile H&PE are most consistent with: Tension/migraine headache ORDERS: Urine test, sumatriptan, Excedrin, Zofran ER intervention: Toradol, DISCHARGE: At this time pt. is stable for d/c to home. Will provide printed patient care instructions, and any necessary prescriptions. Care plan and follow up instructions have been discussed with the patient prior to discharge. Patient take medication as directed, follow-up primary care provider for possible MRI of the brain, worsening symptoms return to emergency room Last Vital Signs Date Time Temp Pulse Resp B/P (MAP) Pulse Ox O2 Delivery O2 Flow Rate FiO2 10/06/19 17:09 98.4 100 18 146/92 (110) 98 Room Air Disposition: HOME, SELF-CARE Condition: Stable Scripts Ondansetron (Zofran) 4 Mg Tablet 4 MG ORAL Q6H PRN for Nausea & Vomiting, #14 TAB Prov: Yefri Caceres 10/06/19 Aspirin/Acetaminophen/Caffeine (EXCEDRIN MIGRAINE CAPLET) 1 Each Tablet 1 EACH PO DAILY, #30 TAB Prov: Yefri Caceres 10/06/19 Sumatriptan Succinate* (IMITREX*) 50 Mg Tablet 50 MG ORAL DAILY PRN MIGRAINE for 7 Days, #7 TAB Prov: Yefri Caceres 10/06/19 Referrals: [facility],REF (PCP) Patient Instructions: Tension Headache Additional Instructions: Take medication as directed, increase oral hydration, avoid greasy and spicy food, avoid foods high in salt, follow-up with your primary doctor for referral to neurologist and brain MRI to rule out migraine headache versus tension headache, avoid alcohol, at this time no head CT scan needed your blood pressure is within normal limits, if worsening symptoms return to the emergency room eYfri Caceres Oct 06, 2019 17:32
[2019-10-06] MEDS ORDERED: IMITREX50 MG ORAL (17:34)
[2019-10-06] MEDS ORDERED: EXCEDRIN MIGRA1 EAC1 PO (17:34)
[2019-10-06] MEDS ORDERED: ZOFRAN4 M1 ORAL (17:34)
[2019-10-06 18:00] VITALS: BP 138/89
--- NOTE | 2019-10-06 18:00 | NUR ---
ER DISCHARGE NOTE: Patient cleared for DC by Yefri SIMPSON. Patient AxO x 4, no s/s of acute distress. Patient verbalized understanding of DC instructions. Patient ID band removed. Able to ambulate with steady gait, took all belongings.
== END 2019-10-06 18:00 | disposition home or self-care (01) ==
LOC: EMR 17:20
DX: G44.209 Tension-type headache, unspecified, not intractable (principal); I10 Essential (primary) hypertension; E11.9 Type 2 diabetes mellitus without complications; Z88.0 Allergy status to penicillin; Z88.1 Allergy status to other antibiotic agents
CPT/HCPCS: 81025; 96372; J1885; J2405; Z7502; 99283

== ENCOUNTER 2020-04-04 09:20 | Emergency (ER) | payer MEDICAID ==
[~2020-04-04] VITALS: Ht 162.6 cm; Wt 81.6 kg
[~2020-04-04 09:20] MED LIST changes: +EXCEDRIN MIGRA1 EAC1 PO; +IMITREX50 MG ORAL; +ZOFRAN4 M1 ORAL
[2020-04-04] MEDS ORDERED: LIPITOR80 MG ORAL (09:29)
[2020-04-04 09:34] VITALS: BP 141/90
[2020-04-04 10:20] VITALS: BP 133/84
--- NOTE | 2020-04-04 10:27 | Diagnostic Imaging Report ---
Clinical Indication:Left wrist pain Technique: 3 views of the left wrist Comparison: None Findings: No acute fractures. No dislocations. The joint spaces are preserved. Impression: Negative
[2020-04-04] MEDS ORDERED: IBUPROFEN600 M1 ORAL (10:32)
--- NOTE | 2020-04-04 11:43 | Emergency Room Report ---
History of Present Illness General Chief Complaint: Pain Source: Patient Present Illness HPI 30-year-old female presents to ED for evaluation. States she has been having pain in her left wrist for the last 4 days. Denies any fall or injury. Throbbing, 8 out of 10, radiating up the left arm. Also feels numbness in her fingers. Denies slurred speech or facial droop. No other aggravating relieving factors. Denies any other associated symptoms Allergies: Coded Allergies: AMOXICILLIN (Verified Allergy, Unknown, 04/04/20) PENICILLINS (Verified Allergy, Unknown, 04/04/20) COVID-19 Screening Contact w/high risk pt: No Experienced COVID-19 symptoms?: No COVID-19 Testing performed [employer]: No Patient History Past Medical History: DM Past Surgical History: none Pertinent Family History: none Social History: Denies: smoking, alcohol use, drug use Last Menstrual Period: mar 2020 Now: No Immunizations: UTD Reviewed Nursing Documentation: PMH: Agreed; PSxH: Agreed Nursing Documentation-PMH Hx Hypertension: Yes Hx Diabetes: Yes - type II Review of Systems All Other Systems: negative except mentioned in HPI Physical Exam Vital Signs Date Time Temp Pulse Resp B/P (MAP) Pulse Ox O2 Delivery O2 Flow Rate FiO2 04/04/20 09:25 97.2 102 18 141/90 (107) 98 Room Air Sp02 EP Interpretation: reviewed, normal General Appearance: no apparent distress, alert, GCS 15, non-toxic Head: normocephalic, atraumatic Eyes: bilateral eye normal inspection, bilateral eye PERRL ENT: hearing grossly normal, normal pharynx, no angioedema, normal voice Neck: full range of motion, supple/symm/no masses Respiratory: chest non-tender, lungs clear, normal breath sounds, speaking full sentences Cardiovascular #1: regular rate, rhythm, no edema Cardiovascular #2: 2+ carotid (R), 2+ carotid (L), 2+ radial (R), 2+ radial (L) , 2+ dorsalis pedis (R), 2+ dorsalis pedis (L) Gastrointestinal: normal bowel sounds, non tender, soft, non-distended, no guarding, no rebound Rectal: deferred Genitourinary: normal inspection, no CVA tenderness Musculoskeletal: back normal, normal range of motion, gait/station normal, tender - L wrist. pain with compression median nerve Neurologic: alert, motor strength/tone normal, oriented x3, sensory intact, responsive, speech normal Psychiatric: judgement/insight normal, memory normal, mood/affect normal, no suicidal/homicidal ideation Reflexes: 3+ bicep (R), 3+ bicep (L), 3+ tricep (R), 3+ tricep (L), 3+ knee (R) , 3+ knee (L) Skin: no rash Lymphatic: no adenopathy Procedures Splinting Splinting : Consent: Verbal Pre-Made Type: velcro Splint: wrist Pre-Proc Neuro Vasc Exam: normal Post-Proc Neuro Vasc Exam: normal Patient Tolerated: Well Complications: None Medical Decision Making Diagnostic Impression: Primary Impression: Wrist pain Qualified Codes: M25.532 - Pain in left wrist ER Course Hospital Course 30-year-old female presents to ED complaining of L wrist pain no trauma Differential diagnoses include: Fracture, dislocation, sprain, contusion, bursitis Clinical course Patient placed on stretcher. After initial history, physical exam reveals a female in no acute distress. There is pain localized to the fourth and fifth digits of right hand. Pain radiates down the forearm. Pain is worsened with median nerve compression. Consistent with carpal tunnel syndrome X-ray left wrist shows no acute process. Placed in wrist splint. I discussed findings with patient. Safe for discharge with close outpatient follow-up. I will provide Ortho referrals Diagnosis - wrist pain stable and discharged to home with prescription for Motrin. Followup with PMD/ ortho. Return to ED if symptoms recur or worsen Other X-Ray Diagnostic Results Other X-Ray Diagnostic Results : X-Ray ordered: L wrist # of Views/Limited Vs Complete: 3 View Indication: Pain EP Interpretation: Yes Interpretation: no dislocation, no soft tissue swelling, no fractures Impression: No acute disease Electronically Signed by: Electronically signed by Macario Snyder MD Last Vital Signs Date Time Temp Pulse Resp B/P (MAP) Pulse Ox O2 Delivery O2 Flow Rate FiO2 04/04/20 10:20 97.2 72 16 133/84 100 Room Air Status: improved Disposition: HOME, SELF-CARE Condition: Stable Scripts Ibuprofen* (MOTRIN*) 600 Mg Tablet 600 MG ORAL Q8H PRN for FOR PAIN, #20 TAB 0 Refills Prov: Macario Snyder MD 04/04/20 Referrals: NON PHYSICIAN (PCP) [facility] Open 24 hour /7 days a week by Appointment Only [address] [place] [id number] Patient Instructions: Carpal Tunnel Syndrome, [id number] Macario Snyder MD Apr 04, 2020 11:43
== END 2020-04-04 10:19 | disposition home or self-care (01) ==
LOC: EMR 09:44
DX: M25.532 Pain in left wrist (principal); Z88.0 Allergy status to penicillin; E11.9 Type 2 diabetes mellitus without complications; I10 Essential (primary) hypertension
CPT/HCPCS: 29125; 73110; Z7502; 99283